=== PATIENT | male | born 1965 | race Caucasian/White ===

== ENCOUNTER 2020-06-04 10:38 | Outpatient (REF) | payer OTHER, SELFPAY ==
--- NOTE | 2020-06-04 10:45 | EMG_ITS ---
Right median and ulnar motor and sensory studies were performed. Right radial sensory study was performed and paraspinal muscles were tested with a needle. IMPRESSION: 1. Mild right median neuropathy across carpal tunnel. 2. Mild right ulnar neuropathy across elbow. MD CAYLA Infante/SILAS / [phone]
[2020-06-04 11:26] LABS: Hematocrit 45.6 % (42-52); Hemoglobin 15.5 g/dl (14.0-18.0); Mean Corpuscular Hemoglobin 28.1 pg (27.0-33.0); Mean Corpuscular Volume 82.6 fL (80-98); Mean Platelet Volume 9.4 fL (9.4-12.4); Platelet Count 353 X10*3/uL (160-400); Red Blood Count 5.52 X10*6/uL (4.60-5.80); Red Cell Distribution Width 13.8 % (11.0-16.0); White Blood Count 10.7 X10*3/uL (4.8-10.8)
[2020-06-04 11:50] LABS: Estimated Average Glucose 117 mg/dL; Hemoglobin A1c % 5.7 %
[2020-06-04 11:51] LABS: Creatinine Urine 29.54 mg/dL; Microalbum/Creatinine Ratio Ur 412.9 ug/mg cr
[2020-06-04 12:08] LABS: Prostate Specific Antigen Scr 1.28 ng/mL (<0.05-4.0); TSH reflex Free T4 2.34 uIU/mL (0.32-4.0)
[2020-06-04 12:11] LABS: Alanine Aminotransferase 39 U/L (0-40); Albumin Level 4.6 g/dL (3.5-5.0); Alkaline Phosphatase 103 U/L (39-117); Anion Gap 15 (12-20); Aspartate Amino Transferase 19 U/L (5-37); Bilirubin Total 0.5 mg/dL (0.0-1.0); Blood Urea Nitrogen 12 mg/dL (9-16); Calcium 9.2 mg/dL (8.4-10.2); Carbon Dioxide 31 mmol/L (22-29); Chloride 100 mmol/L (96-108); Cholesterol 163 mg/dL; Estimated Glomerular Filt Rate > 60; Glucose Fasting 100 mg/dL (60-99); HDL Cholesterol 47 mg/dL; LDL Cholesterol Calculated 96 mg/dl; Potassium 4.1 mmol/L (3.3-5.1); Sodium 142 mmol/L (135-145); Total Protein 7.8 g/dL (6.5-8.0); Triglycerides 103 mg/dL
[2020-06-04 12:23] LABS: Folate 18.9 ng/mL (> or = 4.0); Vitamin B12 277 pg/mL (200-900)
== END 2020-06-04 10:39 | disposition home or self-care (01) ==
LOC: HO.NEURO 10:38
PROVIDERS: PCP Physician Assistant; Visit Provider Physician Assistant
DX: Z12.5 Encounter for screening for malignant neoplasm of prostate (principal); R20.2 Paresthesia of skin; I10 Essential (primary) hypertension; I48.11 Longstanding persistent atrial fibrillation
CPT/HCPCS: 36415; 80053; 80061; 82043; 82607; 82746; 83036; 84153; 84443; 85027; 95860; 95909

== ENCOUNTER 2021-02-15 11:19 | Outpatient (REF) | payer MEDICARE, MEDICAID, SELFPAY ==
[2021-02-15 11:54] LABS: Hemoglobin 15.5 g/dl (14.0-18.0); Mean Corpuscular HGB Conc 33.7 g/dl (31.0-36.0); Mean Corpuscular Hemoglobin 27.3 pg (27.0-33.0); Platelet Count 370 X10*3/uL (160-400); Red Blood Count 5.68 X10*6/uL (4.60-5.80); Red Cell Distribution Width 14.1 % (11.0-16.0); White Blood Count 13.3 X10*3/uL (4.8-10.8)
[2021-02-15 12:04] LABS: Estimated Average Glucose 131 mg/dL; Hemoglobin A1c % 6.2 %
[2021-02-15 12:34] LABS: TSH reflex Free T4 1.51 uIU/mL (0.32-4.0)
[2021-02-15 12:38] LABS: Alanine Aminotransferase 29 U/L (0-40); Albumin Level 4.5 g/dL (3.5-5.0); Alkaline Phosphatase 99 U/L (39-117); Anion Gap 14 (12-20); Aspartate Amino Transferase 20 U/L (5-37); Bilirubin Total 0.6 mg/dL (0.0-1.0); Blood Urea Nitrogen 11 mg/dL (9-16); Calcium 9.8 mg/dL (8.4-10.2); Carbon Dioxide 30 mmol/L (22-29); Chloride 103 mmol/L (96-108); Cholesterol 163 mg/dL; Estimated Glomerular Filt Rate > 60; Glucose Fasting 113 mg/dL (60-99); HDL Cholesterol 38 mg/dL; Potassium 4.2 mmol/L (3.3-5.1); Sodium 143 mmol/L (135-145); Total Protein 7.9 g/dL (6.5-8.0)
[2021-02-15 13:20] LABS: Creatinine Urine 69.75 mg/dL; Microalbum/Creatinine Ratio Ur 160.5 ug/mg cr
[2021-02-15 15:06] LABS: LDL Cholesterol Calculated 101 mg/dl; Triglycerides 121 mg/dL
== END 2021-02-15 11:20 | disposition home or self-care (01) ==
LOC: HO.LAB 11:19
PROVIDERS: PCP Physician Assistant; Visit Provider Physician Assistant
DX: I48.11 Longstanding persistent atrial fibrillation (principal); I10 Essential (primary) hypertension
CPT/HCPCS: 36415; 80053; 80061; 82043; 83036; 84443; 85027

== ENCOUNTER 2022-07-12 11:30 | Outpatient (REF) | payer MEDICARE, MEDICAID, SELFPAY ==
[2022-07-12 12:19] LABS: Hematocrit 44.5 % (42.0-52.0); Hemoglobin 14.7 g/dl (14.0-18.0); Mean Corpuscular Hemoglobin 26.8 pg (27.0-33.0); Mean Corpuscular Volume 81.1 fL (80.0-98.0); Mean Platelet Volume 8.9 fL (9.4-12.4); Platelet Count 293 X10*3/uL (160-400); Red Blood Count 5.49 X10*6/uL (4.60-5.80); Red Cell Distribution Width 14.5 % (11.0-16.0); White Blood Count 9.4 X10*3/uL (4.8-10.8)
[2022-07-12 13:00] LABS: Alanine Aminotransferase 25 U/L (0-40); Albumin Level 4.1 g/dL (3.5-5.0); Alkaline Phosphatase 99 U/L (39-117); Anion Gap 13 (12-20); Aspartate Amino Transferase 13 U/L (5-37); Bilirubin Total 0.8 mg/dL (0.0-1.0); Blood Urea Nitrogen 15 mg/dL (9-16); Calcium 9.7 mg/dL (8.4-10.2); Carbon Dioxide 32 mmol/L (22-29); Chloride 102 mmol/L (96-108); Cholesterol 143 mg/dL; Estimated Glomerular Filt Rate > 60; Glucose Fasting 120 mg/dL (60-99); HDL Cholesterol 41 mg/dL; LDL Cholesterol Calculated 89 mg/dl; Potassium 4.5 mmol/L (3.3-5.1); Sodium 142 mmol/L (135-145); TSH reflex Free T4 1.38 uIU/mL (0.32-4.0); Total Protein 6.7 g/dL (6.5-8.0); Triglycerides 68 mg/dL
[2022-07-12 13:41] LABS: Creatinine Urine 111.14 mg/dL; Microalbum/Creatinine Ratio Ur 253.7 ug/mg cr
== END 2022-07-12 11:31 | disposition home or self-care (01) ==
LOC: HO.LAB 11:30
PROVIDERS: PCP Physician Assistant; Visit Provider Physician Assistant
DX: I10 Essential (primary) hypertension (principal); I48.11 Longstanding persistent atrial fibrillation; Z12.5 Encounter for screening for malignant neoplasm of prostate
CPT/HCPCS: 36415; 80053; 80061; 82043; 84153; 84443; 85027

== ENCOUNTER 2022-11-15 13:55 | Outpatient (AMB) | payer MEDICARE, MEDICAID, SELFPAY ==
--- NOTE | 2022-11-15 13:58 | A.OFFPC_ITS ---
Vital Signs 11/15/22 14:00 Height 5 ft 6 in Weight 236 lb 2 oz BMI 38.1 BP 112/68 Blood Pressure Location Lt brachial Position Sitting Pulse 88 Pulse Source Pulse Oximeter Pulse Oximetry (%) 98 Oxygen Delivery Method Room Air Intake Visit Reasons: 4 month f/u Intake Note: Patient is here to follow up on COPD, HTN, Asthma and Afib. Preparation Supervisor Canning Required: No Residential Mortgage Manager: Not Required per policy Accompanied by: Self / Same As Patient Allergies No Known Allergies Allergy (Verified 11/15/22 14:30) Medication List - Last Reconciled 11/15/22 by Niels Gonzalez PA-C albuterol sulfate 90 mcg/actuation (ProAir HFA) 2 puffs PO QID 30 days albuterol sulfate 90 mcg/actuation (ProAir RespiClick) 2 inhalations PO Q6H PRN 30 days amlodipine 10 mg PO DAILY 90 days apixaban 5 mg PO BID 90 days fluticasone propion-salmeterol 232-14 mcg/actuation 1 inh inhalation BID 30 days fluticasone propionate 220 mcg/actuation (Flovent HFA) 1 puff inhalation Q12H 30 days furosemide 40 mg PO DAILY losartan 100 mg (2 x 50 mg) PO DAILY 90 days metoprolol succinate ER 100 mg PO DAILY 90 days pantoprazole 20 mg PO DAILY tiotropium bromide (Spiriva with HandiHaler) 1 cap inhalation DAILY 90 days Tobacco use date assessed: 11/15/22 Dental Screening Dental Screen Date: 11/15/22 Did you have a dental visit in the last 12 months?: No Did you have a dental problem in the last 6 months where you did not have access to dental care?: No Was dental information given to patient?: No HPI 4 month f/u HPI Details Patient is a 57 year old male here today for follow-up visit.. Patient has a past medical history significant for HTN, COPD, AFIB, GERD. Concern--> recently had a gout flare and was given prednisone which has helped. He reports his gout flares attacks ankles and feet. He reports this happens to him on a monthly basis. PLAN: He is willing to start daily medication to reduce uric acid levels HTN:? Patient's blood pressure at home and here in the office has been stable.? Denies any headaches, vision issues, chest discomfort or palpitations. ? .. ? AFIB: On Eliquis 5 mg b.i.d. denies any overt signs of bleeding. Continues to follow cardiology and was field. He reports recently getting cardiac testing which showed satisfactory results. ?Currently patient without chest pain or palpitations. .. Obesity:? ? He does understand his BMI is well over 30 and is willing to add after better eating habits and try to be more physically active to reduce his weight. ? .. ? COPD: Is followed by a hospital manager Dr. Rocha in [facility] Continues with the use of maintenance inhalers which are helpful to him. ?.? Laboratory Tests 07/12/22 07/12/22 11:58 11:58 RBC 5.49 Creatinine 0.70 Fasting Glucose 120 H Cholesterol 143 PSA Screen 2.10 TSH 1.38 ? PFSH Surgical History No pertinent past surgical history Family History Father Diabetes Mother Hypertension Brother No problems noted. Sister No problems noted. Social History Housing: House Alcohol intake: current Alcohol intake frequency: a few times a week Patient Tobacco Use Status: Former Tobacco user Tobacco use type: Cigarette e-Cigarette/Vaping Use: Never Used Second Hand Smoke Exposure: No service: No Current occupational status: disabled Cognitive needs: No Hearing needs: No Vision needs: No Questionnaire Thrive Questionnaire Date Thrive assessed: 07/12/22 RICARDO-7 AMB Questionnaire RICARDO-7 Date RICARDO - 7 assessed: 07/12/22 Source: Developed by Drs. Cory Dos Santos, Cami Lehman, Guilherme Emanuel and colleagues, with an educational mariza from [employer]. Review of Systems Const Denies headache(s) Eyes Denies loss of vision ENT Denies vertigo, Denies dizziness, Denies headache(s) and Denies sore throat Card Denies chest pain, Denies leg edema and Denies lightheadedness Resp Denies cough, Denies hemoptysis and Denies wheezing GI Denies abdominal pain, Denies melena, Denies constipation, Denies diarrhea and Denies vomiting Denies dysuria, Denies urinary frequency and Denies urinary urgency Musc Denies arthralgias, Denies joint swelling, Denies numbness and Denies tingling Neuro Denies Abnormal speech present, Denies behavioral changes, Denies vertigo, Denies dizziness, Denies headache(s), Denies loss of vision, Denies memory loss, Denies numbness and Denies tingling Psych Denies anxiety, Denies behavioral changes, Denies depression, Denies memory loss and Denies panic attacks Sandor/Lymph Denies easy bleeding and Denies easy bruising Aller/Immun Denies wheezing Physical exam (Primary Care) Vital Signs: Last Vital Signs Pulse 88 11/15/22 14:00 BP 112/68 11/15/22 14:00 Pulse Ox 98 11/15/22 14:00 Oxygen Delivery Method Room Air 11/15/22 14:00 BMI result Body Mass Index 38.1 BMI Assessment/Plan discussion: High Tobacco/Smoking Status: Tobacco use Status Tobacco use date assessed 11/15/22 11/15/22 14:17 Patient Tobacco Use Status Former Tobacco user 11/15/22 13:58 Tobacco use type Cigarette 11/15/22 13:58 e-Cigarette/Vaping Use Never Used 11/15/22 13:58 Thrive Assessment: Date of Thrive Assessment Date Thrive assessed 07/12/22 11/15/22 13:58 Const Other: Obese General: no acute distress, alert and awake Nutritional Appearance: well nourished Orientation/consciousness: oriented to person, oriented to place and oriented to time HENWV Ears: TM's normal bilaterally General nose exam: Normal nasal mucous membranes and turbinates present Eyes Conjunctivae: conjunctivae normal Sclerae: sclerae normal Pupils: Equal, round and reactive pupils present Neck Neck: Yes no lymphadenopathy and Yes no JVD Thyroid: Thyroid normal Carotids: no bruits Resp Effort & Inspection: normal respiratory effort and not tachypneic Auscultation: no crackles, no rales, no rhonchi and no wheezes Cardio Rate: regular rate Rhythm: regular rhythm Heart sounds: no murmurs and normal S1 and S2 GI Palpation (GI): Soft to palpation, nontender, no hepatomegaly and no splenomegaly Auscultation: normal bowel sounds Skin General skin exam: no rashes or lesions noted and dry skin Neuro General: oriented to person, oriented to place and oriented to time Cranial nerves: Yes Equal, round and reactive pupils present Speech: No Abnormal speech present Gait exam (Neuro): Normal gait present Motor exam (neuro): no tremor noted Extrem Right upper extremity: full ROM Left upper extremity: full ROM Right lower extremity: full ROM; no edema Left lower extremity: full ROM; no edema Psych Mental Status: mental status grossly normal Speech and movement: Normal speech and movement present Affect: normal affect Attitude: cooperative Thought process: Normal thought process present Assessment and Plan Assessment & Plan (1) HTN (hypertension): Code(s): I10 - Essential (primary) hypertension Qualifiers: Hypertension type: essential hypertension Qualified Code(s): I10 - Essential (primary) hypertension Plan: Patient's blood pressure acceptable today in office. Will continue his current dose of antihypertensive medication with goal blood pressure to be below 140/90 (2) COPD (chronic obstructive pulmonary disease): Code(s): J44.9 - Chronic obstructive pulmonary disease, unspecified Qualifiers: COPD type: chronic bronchitis Chronic bronchitis type: mixed simple and mucopurulent Qualified Code(s): J41.8 - Mixed simple and mucopurulent chronic bronchitis Plan: Patient reports his pulmonary symptoms have been fairly stable with the use of his maintenance inhaler and p.r.n. use of his albuterol inhaler. Is followed by hospital manager and was field [place]. Denies any recent COPD exacerbations. (3) Afib: Code(s): I48.91 - Unspecified atrial fibrillation Qualifiers: Atrial fibrillation type: longstanding persistent Qualified Code(s): I48.11 - Longstanding persistent atrial fibrillation Plan: Again followed by head up operator locally. Does continue with Eliquis without any overt signs of bleeding. He has rate controlledl with metoprolol 100 mg daily. (4) Obese: Code(s): E66.9 - Obesity, unspecified Qualifiers: Body mass index: BMI 38.0-38.9 Obesity classification: adult class 2 (BMI 35 - 39.9) Obesity type: due to excess calories Serious obesity comorbidity presence: with serious comorbidity Qualified Code(s): E66.01 - Morbid (severe) obesity due to excess calories; Z68.38 - Body mass index [BMI] 38.0-38.9, adult Plan: He does understand his BMI is well over 30 will try to work on being more physically active and adapting to better eating habits to reduce his weight (5) Gout: Code(s): M10.9 - Gout, unspecified Qualifiers: Chronicity: chronic Encounter type: initial encounter Gout site: foot Laterality: left Presence of tophus: without tophus Plan: report having frequent gout flares in his ankles and feet as of late. He admits to dietary indiscretion. Has been seen at the ER and given prednisone for a gout flare which had helped. He is willing to start on daily medication to reduce his uric acid levels. (6) Impaired glucose metabolism: Code(s): R73.09 - Other abnormal glucose Plan: Most recent blood work showing elevated fasting blood sugar and A1c is 6.2. Will recheck A1c and fasting blood sugar to assure not in diabetic range. Again advised on weight reduction and low-carbohydrate diet. Orders: Orders Comprehensive Crowell. Panel Fast 11/15/22 I10 - Essential (primary) hypertension Microalbumin, Random (w Creat) 11/15/22 I10 - Essential (primary) hypertension Complete Blood Count no Diff 11/15/22 J41.8 - Mixed simple and mucopurulent chronic bronchitis Hemoglobin A1c 11/15/22 R73.09 - Other abnormal glucose Uric Acid Today M10.9 - Gout, unspecified Medications: New allopurinol 100 mg PO DAILY 90 tabs 1RF 90 days M10.9 - Gout, unspecified prednisone 10 mg PO DAILY PRN 7 tabs 0RF gout attack 7 days M10.9 - Gout, unspecified Changed From albuterol sulfate 90 mcg/actuation (ProAir HFA) 2 puffs PO QID 30 days 8.5 grams 3RF wheezing J41.8 - Mixed simple and mucopurulent chronic bronchitis To albuterol sulfate 90 mcg/actuation 2 puffs PO QID 8.5 grams 3RF wheezing 30 days J41.8 - Mixed simple and mucopurulent chronic bronchitis Refilled apixaban 5 mg PO BID 180 tabs 2RF 90 days I48.11 - Longstanding persistent atrial fibrillation tiotropium bromide (Spiriva with HandiHaler) 1 cap inhalation DAILY 90 caps 2RF 90 days J41.8 - Mixed simple and mucopurulent chronic bronchitis furosemide 40 mg PO DAILY 90 tabs 0RF J45.909 - Unspecified asthma, uncomplicated fluticasone propionate 220 mcg/actuation (Flovent HFA) 1 puff inhalation Q12H 12 grams 3RF 30 days J45.909 - Unspecified asthma, uncomplicated fluticasone propion-salmeterol 232-14 mcg/actuation 1 inh inhalation BID 1 ea 3RF 30 days J41.8 - Mixed simple and mucopurulent chronic bronchitis Coding Level of Care Code Est Pt Level 4 (45168) Diagnoses HTN (hypertension) I10 Hypertension type: essential hypertension COPD (chronic obstructive pulmonary disease) J41.8 COPD type: chronic bronchitis Chronic bronchitis type: mixed simple and mucopurulent Afib I48.11 Atrial fibrillation type: longstanding persistent Obese E66.01; Z68.38 Body mass index: BMI 38.0-38.9 Obesity classification: adult class 2 (BMI 35 - 39.9) Obesity type: due to excess calories Serious obesity comorbidity presence: with serious comorbidity Gout M10.9 Chronicity: chronic Encounter type: initial encounter Gout site: foot Laterality: left Presence of tophus: without tophus Impaired glucose metabolism R73.09
[2022-11-15 14:00] VITALS: BP 112/68; PULSE 88; O2SAT 98; BMI 38.1
== END 2022-11-15 14:48 | disposition home or self-care (01) ==
PROVIDERS: PCP Physician Assistant; Visit Provider Physician Assistant
DX: I10 Essential (primary) hypertension (principal); J41.8 Mixed simple and mucopurulent chronic bronchitis; E66.01 Morbid (severe) obesity due to excess calories; Z68.38 Body mass index [BMI] 38.0-38.9, adult; I48.11 Longstanding persistent atrial fibrillation; M10.9 Gout, unspecified; R73.09 Other abnormal glucose
CPT/HCPCS: 99214

== ENCOUNTER 2023-03-21 13:37 | Outpatient (AMB) | payer OTHER, MEDICAID, SELFPAY ==
--- NOTE | 2023-03-21 13:32 | A.OFFPC_ITS ---
Intake Visit Reasons: f/u COPd/ HTN/ AFIB/[phone] [employer]er Required: No Accompanied by: Self / Same As Patient Allergies No Known Allergies Allergy (Verified 03/21/23 13:39) Medication List - Last Reconciled 03/21/23 by Niels Gonzalez PA-C albuterol sulfate 90 mcg/actuation 2 puffs PO QID 30 days allopurinol 100 mg PO DAILY 90 days amlodipine 10 mg PO DAILY 90 days apixaban 5 mg PO BID 90 days fluticasone propion-salmeterol 232-14 mcg/actuation 1 inh inhalation BID 30 days fluticasone propionate 220 mcg/actuation (Flovent HFA) 1 puff inhalation Q12H 30 days discwofvsgn-duvegcvdw-bakzuqys 100-62.5-25 mcg (Trelegy Ellipta) 1 ea inhalation DAILY furosemide 40 mg PO DAILY losartan 100 mg (2 x 50 mg) PO DAILY 90 days metoprolol succinate ER 100 mg PO DAILY 90 days pantoprazole 20 mg PO DAILY tiotropium bromide (Spiriva with HandiHaler) 1 cap inhalation DAILY 90 days Tobacco use date assessed: 03/21/23 Dental Screening Dental Screen Date: 03/21/23 Did you have a dental visit in the last 12 months?: No Did you have a dental problem in the last 6 months where you did not have access to dental care?: No Was dental information given to patient?: Patient has dentist HPI f/u COPd/ HTN/ AFIB/[phone] HPI Details Patient is a 57 year old male being evaluated today via telephone for follow-up visit.. Patient has a past medical history significant for HTN, COPD, AFIB, GERD. unfortunately has not gotten labs done before todays visit. Concern-- HTN:? Patient's blood pressure at home have been stable 110s to 120 systolic.? Denies any headaches, vision issues, chest discomfort or palpitations. ? .. ? AFIB: On Eliquis 5 mg b.i.d. denies any overt signs of bleeding. Continues to [place]. He reports recently getting cardiac testing and ECHO which showed satisfactory results. ?Currently patient without chest pain or palpitations. .. ? .. ? COPD: Is followed by a rural service engineer Dr. Villalta in [facility].? Continues with the use of maintenance inhalers (trelegy) which are helpful to him. He does report at times of physical exertion you does get short of breath and does have to uses rescue inhaler which resolves his shortness of breath. ?.? PFSH Surgical History No pertinent past surgical history Family History Father Diabetes Mother Hypertension Brother No problems noted. Sister No problems noted. Social History Housing: House Alcohol intake: current Alcohol intake frequency: a few times a week Patient Tobacco Use Status: Former Tobacco user Tobacco use type: Cigarette e-Cigarette/Vaping Use: Never Used Second Hand Smoke Exposure: No service: No Current occupational status: disabled Cognitive needs: No Hearing needs: No Vision needs: No Questionnaire PHQ-9 Over the last 2 weeks, how often have you been bothered by any of the following problems? 1. Little interest or pleasure in doing things: not at all 2. Feeling down, depressed, or hopeless: not at all 3. Trouble falling or staying asleep, or sleeping too much: not at all 4. Feeling tired or having little energy: not at all 5. Poor appetite or overeating: not at all 6. Feeling bad about yourself - or that you are a failure or have let yourself or your family down: not at all 7. Trouble concentrating on things, such as reading the newspaper or watching television: not at all 8. Moving or speaking so slowly that other people could have noticed. Or the opposite - being so fidgety or restless that you have been moving around a lot more than usual: not at all 9. Thoughts that you would be better off or of hurting yourself in some way: not at all Total score: 0 Depression Screening Interpretation: Negative Depression Screening Done: Yes 90305 - PHQ-9 Billing: Yes Source: Developed by Drs. Cory Dos Santos, Cami Lehman, Guilherme Emanuel and colleagues, with an educational mariza from [employer]. Thrive Questionnaire Date Thrive assessed: 03/21/23 I am a: Patient What is your living situation today?: I have a steady place to live Within the past 12 months, did the food you bought not last and you didn't have the money to get more?: Never true Within the past 12 months, did you worry whether your food would run out before you got money to buy more?: Never true Do you have trouble paying for medicines?: No Do you have trouble getting transportation to medical appointments?: No Do you have trouble paying your heating and electricity bill?: No Do you have trouble taking care of your child, family member or friend?: No Do you have trouble with day-to-day activities such as bathing, preparing meals, shopping, managing finances, etc.?: No Are you currently unemployed and looking for a job?: No Are you interested in more education?: No Please select the resources that you would like help with: None Currently or been in a relationship where the following occur: no concerns reported AUDIT C Alcohol Use Questionnaire (AUDIT-C) 1. How often do you have a drink containing alcohol?: Monthly or less 2. How many drinks containing alcohol do you have on a typical day when you are drinking?: 1 or 2 3. How often do you have six or more drinks on one occasion?: Never Total Score: 1 RICARDO-7 AMB Questionnaire RICARDO-7 Date RICARDO - 7 assessed: 03/21/23 Feeling nervous, anxious, or on edge: 0 = Not at all Not being able to stop or control worryin = Not at all Worrying too much about different things: 0 = Not at all Trouble relaxin = Not at all Being so restless that it is hard to sit still: 0 = Not at all Becoming easily annoyed or irritable: 0 = Not at all Feeling afraid as if something awful might happen: 0 = Not at all Total RICARDO-7 score (0-4 normal; 5-9 mild; 10-14 moderate; 15-21 severe): 0 Source: Developed by Drs. Cory Dos Santos, Cami Lehman, Guilherme Emanuel and colleagues, with an educational mariza from [employer]. RICARDO-7 Assessment Billing RICARDO-7 Assessment Tool: RICARDO-7 Assessment 53680 Review of Systems Const Denies headache(s) Eyes Denies loss of vision ENT Denies vertigo, Denies dizziness, Denies headache(s) and Denies sore throat Card Denies chest pain, Denies leg edema and Denies lightheadedness Resp Denies cough, Denies hemoptysis and Denies wheezing GI Denies abdominal pain, Denies melena, Denies constipation, Denies diarrhea and Denies vomiting Denies dysuria, Denies urinary frequency and Denies urinary urgency Musc Denies arthralgias, Denies joint swelling, Denies numbness and Denies tingling Neuro Denies behavioral changes, Denies vertigo, Denies dizziness, Denies headache(s), Denies loss of vision, Denies memory loss, Denies numbness and Denies tingling Psych Denies anxiety, Denies behavioral changes, Denies depression, Denies memory loss and Denies panic attacks Sandor/Lymph Denies easy bleeding and Denies easy bruising Aller/Immun Denies wheezing Physical exam (Primary Care) Tobacco/Smoking Status: Tobacco use Status Tobacco use date assessed 03/21/23 03/21/23 13:36 Patient Tobacco Use Status Former Tobacco user 03/21/23 13:32 Tobacco use type Cigarette 03/21/23 13:32 e-Cigarette/Vaping Use Never Used 03/21/23 13:32 PHQ-9: PHQ-9 Score PHQ-9: Total score 0 03/21/23 13:36 Depression Screening Interpretation: Negative Thrive Assessment: Date of Thrive Assessment Date Thrive assessed 03/21/23 03/21/23 13:36 Currently or been in a relationship where the following occur: no concerns reported Telehealth Telehealth Location of provider rendering services: practice address Location of patient: address on file Patient Identification confirmed using: Name, : Yes Telehealth method: voice only Patient verbally consented to treatment: Yes Patient verbally consented to billing insurance company: Yes Patient informed of any privacy concerns related to visit: Yes Minutes spent on Phone/Video with Pt.: 11 Assessment and Plan Assessment & Plan (1) COPD (chronic obstructive pulmonary disease): Code(s): J44.9 - Chronic obstructive pulmonary disease, unspecified Qualifiers: COPD type: chronic bronchitis Chronic bronchitis type: mixed simple and mucopurulent Qualified Code(s): J41.8 - Mixed simple and mucopurulent chronic bronchitis Plan: Patient reports his pulmonary symptoms have been fairly stable with the use of his maintenance inhaler and p.r.n. use of his albuterol inhaler. Is followed by rural service engineer and [facility] ( dr. villalta). Denies any recent COPD exacerbations. (2) GERD (gastroesophageal reflux disease): Code(s): K21.9 - Gastro-esophageal reflux disease without esophagitis Qualifiers: Esophagitis presence: without esophagitis Qualified Code(s): K21.9 - Gastro-esophageal reflux disease without esophagitis Plan: His GERD symptoms have been well controlled with use of pantoprazole. He does report some dietary indiscretion that causes some GERD symptoms. Advised on dietary modifications (3) HTN (hypertension): Code(s): I10 - Essential (primary) hypertension Qualifiers: Hypertension type: essential hypertension Qualified Code(s): I10 - Essential (primary) hypertension Plan: Patient reports that home his blood pressure been stable.. Will continue his current dose of antihypertensive medication with goal blood pressure to be below 140/90 (4) Afib: Code(s): I48.91 - Unspecified atrial fibrillation Qualifiers: Atrial fibrillation type: longstanding persistent Qualified Code(s): I48.11 - Longstanding persistent atrial fibrillation Plan: Again followed by inventory associate and driver locally. Does continue with Eliquis without any overt signs of bleeding. He has rate controlled with metoprolol 100 mg daily. (5) Gout: Code(s): M10.9 - Gout, unspecified Qualifiers: Gout site: foot Encounter type: initial encounter Chronicity: chronic Laterality: left Presence of tophus: without tophus Plan: report having frequent gout flares in his ankles and feet as of late. He admits to dietary indiscretion. Has been seen at the ER and given prednisone for a gout flare which had helped. He is willing to start on daily medication to reduce his uric acid levels. (6) Impaired glucose metabolism: Code(s): R73.09 - Other abnormal glucose Plan: Most recent blood work showing elevated fasting blood sugar and A1c is 6.2. Will recheck A1c and fasting blood sugar to assure not in diabetic range. Again advised on weight reduction and low-carbohydrate diet. Orders: Orders Prostate Specific Antigen Scr Today Z12.5 - Encounter for screening for malignant neoplasm of prostate Medications: Changed From pantoprazole 20 mg PO DAILY 90 tabs 1RF K21.9 - Gastro-esophageal reflux disease without esophagitis To pantoprazole 20 mg PO DAILY 90 days 90 tabs 2RF K21.9 - Gastro-esophageal reflux disease without esophagitis From furosemide 40 mg PO DAILY 90 tabs 0RF I10 - Essential (primary) hypert ension To furosemide 40 mg PO DAILY 90 days 90 tabs 2RF I10 - Essential (primary) hypertension Refilled albuterol sulfate 90 mcg/actuation 2 puffs PO QID 30 days 8.5 grams 3RF wheezing J41.8 - Mixed simple and mucopurulent chronic bronchitis amlodipine 10 mg PO DAILY 90 days 90 tabs 2RF I10 - Essential (primary) hypertension apixaban 5 mg PO BID 90 days 180 tabs 2RF I48.11 - Longstanding persistent atrial fibrillation fluticasone propionate 220 mcg/actuation (Flovent HFA) 1 puff inhalation Q12H 30 days 12 grams 3RF J45.909 - Unspecified asthma, uncomplicated tiotropium bromide (Spiriva with HandiHaler) 1 cap inhalation DAILY 90 days 90 caps 2RF J41.8 - Mixed simple and mucopurulent chronic bronchitis metoprolol succinate ER 100 mg PO DAILY 90 days 90 tabs 2RF I48.11 - Longstanding persistent atrial fibrillation losartan 100 mg (2 x 50 mg) PO DAILY 90 days 180 tabs 2RF I10 - Essential (primary) hypertension allopurinol 100 mg PO DAILY 90 days 90 tabs 2RF M10.9 - Gout, unspecified Coding Level of Care Code Tele Est Pt Level 4 (49058) Diagnoses Mixed simple and mucopurulent chronic bronchitis J41.8 COPD type: chronic bronchitis Chronic bronchitis type: mixed simple and mucopurulent Gastroesophageal reflux disease without esophagitis K21.9 Esophagitis presence: without esophagitis Essential hypertension I10 Hypertension type: essential hypertension Longstanding persistent atrial fibrillation I48.11 Atrial fibrillation type: longstanding persistent Gout M10.9 Gout site: foot Encounter type: initial encounter Chronicity: chronic Laterality: left Presence of tophus: without tophus Impaired glucose metabolism R73.09 Additional Codes RICARDO-7 Assessment Billing - RICARDO-7 Assessment Tool: RICARDO-7 Assessment 33546 ([id number])
== END 2023-03-21 13:57 | disposition home or self-care (01) ==
LOC: HO.HMGH 13:37
PROVIDERS: PCP Physician Assistant; Visit Provider Physician Assistant
DX: J41.8 Mixed simple and mucopurulent chronic bronchitis (principal); K21.9 Gastro-esophageal reflux disease without esophagitis; I10 Essential (primary) hypertension; I48.11 Longstanding persistent atrial fibrillation; M10.9 Gout, unspecified; R73.09 Other abnormal glucose
CPT/HCPCS: 99442

== ENCOUNTER 2023-07-25 14:13 | Outpatient (AMB) | payer OTHER, MEDICAID, SELFPAY ==
--- NOTE | 2023-07-25 14:22 | A.OFFPC_ITS ---
Vital Signs 07/25/23 14:24 07/25/23 14:34 07/25/23 14:46 Height 5 ft 6 in Weight 241 lb 4 oz BMI 38.9 BP 132/90 H 150/90 H Blood Pressure Location Lt brachial Position Sitting Pulse 85 Pulse Source Pulse Oximeter Pulse Oximetry (%) 89 L 92 Oxygen Delivery Method Room Air Room Air Intake Visit Reasons: 4mth follow up/COPD Intake Note: Patient is here to follow up on COPD, IGF, HTN. Patient Assistant Required: No Probate Clerk: Not Required per policy Accompanied by: Self / Same As Patient Allergies No Known Allergies Allergy (Verified 07/25/23 14:36) Medication List - Last Reconciled 07/25/23 by Niels Gonzalez PA-C albuterol sulfate 90 mcg/actuation 2 puffs PO QID 30 days allopurinol 100 mg PO DAILY 90 days amlodipine 10 mg PO DAILY 90 days apixaban 5 mg PO BID 90 days nrsodufovia-dixkvzofg-jmxateym 100-62.5-25 mcg (Trelegy Ellipta) 1 ea inhalation DAILY furosemide 40 mg PO DAILY 90 days losartan 100 mg (2 x 50 mg) PO DAILY 90 days metoprolol succinate ER 100 mg PO DAILY 90 days pantoprazole 20 mg PO DAILY 90 days Tobacco use date assessed: 07/25/23 Dental Screening Dental Screen Date: 03/21/23 HPI 4mth follow up/COPD HPI Details Patient is a 57 year old male here today for follow-up visit.. Patient has a past medical history significant for HTN, COPD, AFIB, GERD. unfortunately has not gotten labs done before todays visit. Concern-- > continues to have shortness of breath on minimal exertion. Has been using his maintenance inhaler regularly. He has followed up with [employer] [employer] and will be getting a battery of tests including chest x-ray, PFT and 6 minute walk test. He does report seeing his sifter and miller last year and did do cardiac stress test and reports no evidence of ischemic heart disease. HTN:? Patient's blood pressure at home have been stable 110s to 120 systolic. Blood pressure today in office slightly elevated. He does report may have a element of white coat hypertension.? Denies any headaches, vision issues, chest discomfort or palpitations. ? .. ? AFIB: On Eliquis 5 mg b.i.d. denies any overt signs of bleeding. Continues to follow cardiology and [facility]. He reports recently getting cardiac testing and ECHO which showed satisfactory results. ?Currently patient without chest pain or palpitations. .. ? .. ? COPD: Is followed by a [facility] Dr. Villalta in [facility].? Continues with the use of maintenance inhalers (trelegy) which are helpful to him. He does report at times of physical exertion you does get short of breath and does have to uses rescue inhaler which resolves his shortness of breath He will be going for a PFT and chest xray in near future [facility] Surgical History No pertinent past surgical history Family History Father Diabetes Mother Hypertension Brother No problems noted. Sister No problems noted. Social History Housing: House Alcohol intake: current Alcohol intake frequency: a few times a week Patient Tobacco Use Status: Former Tobacco user Tobacco use type: Cigarette e-Cigarette/Vaping Use: Never Used Second Hand Smoke Exposure: No service: No Current occupational status: disabled Cognitive needs: No Hearing needs: No Vision needs: No Questionnaire Thrive Questionnaire Date Thrive assessed: 03/21/23 RICARDO-7 AMB Questionnaire RICARDO-7 Date RICARDO - 7 assessed: 03/21/23 Source: Developed by Drs. Cory Dos Santos, Cami Lehman, Guilherme Emanuel and colleagues, with an educational mariza from [employer]. Review of Systems Const Denies headache(s) Eyes Denies loss of vision ENT Denies vertigo, Denies dizziness, Denies headache(s) and Denies sore throat Card Denies chest pain, Denies leg edema, Denies lightheadedness, Reports dyspnea and Reports dyspnea on exertion Resp Denies cough, Denies hemoptysis, Reports dyspnea, Reports dyspnea on exertion and Denies wheezing GI Denies abdominal pain, Denies melena, Denies constipation, Denies diarrhea and Denies vomiting Denies dysuria, Denies urinary frequency and Denies urinary urgency Musc Denies arthralgias, Denies joint swelling, Denies numbness and Denies tingling Neuro Denies Abnormal speech present, Denies behavioral changes, Denies vertigo, Denies dizziness, Denies headache(s), Denies loss of vision, Denies memory loss, Denies numbness and Denies tingling Psych Denies anxiety, Denies behavioral changes, Denies depression, Denies memory loss and Denies panic attacks Sandor/Lymph Denies easy bleeding and Denies easy bruising Aller/Immun Denies wheezing Physical exam (Primary Care) Vital Signs: Last Vital Signs Pulse 85 07/25/23 14:24 BP 132/90 H 07/25/23 14:24 Pulse Ox 92 07/25/23 14:34 Oxygen Delivery Method Room Air 07/25/23 14:34 BMI result Body Mass Index 38.9 Tobacco/Smoking Status: Tobacco use Status Tobacco use date assessed 07/25/23 07/25/23 14:34 Patient Tobacco Use Status Former Tobacco user 07/25/23 14:34 Tobacco use type Cigarette 07/25/23 14:34 e-Cigarette/Vaping Use Never Used 07/25/23 14:34 Thrive Assessment: Date of Thrive Assessment Date Thrive assessed 03/21/23 07/25/23 14:34 Const General: healthy appearing, no acute distress, alert and awake Nutritional Appearance: well nourished Orientation/consciousness: oriented to person, oriented to place and oriented to time HENMT Ears: TM's normal bilaterally General nose exam: Normal nasal mucous membranes and turbinates present Eyes Conjunctivae: conjunctivae normal Sclerae: sclerae normal Pupils: Equal, round and reactive pupils present Neck Neck: Yes no lymphadenopathy and Yes no JVD Thyroid: Thyroid normal Carotids: no bruits Resp Effort & Inspection: normal respiratory effort and not tachypneic Auscultation: no crackles, no rales, no rhonchi and no wheezes Cardio Rate: regular rate Rhythm: regular rhythm Heart sounds: no murmurs and normal S1 and S2 GI Palpation (GI): Soft to palpation, nontender, no hepatomegaly and no splenomegaly Auscultation: normal bowel sounds Skin General skin exam: no rashes or lesions noted and dry skin Neuro General: oriented to person, oriented to place and oriented to time Cranial nerves: Yes Equal, round and reactive pupils present Speech: No Abnormal speech present Gait exam (Neuro): Normal gait present Motor exam (neuro): no tremor noted Extrem Right upper extremity: full ROM Left upper extremity: full ROM Right lower extremity: full ROM; no edema Left lower extremity: full ROM; no edema Psych Mental Status: mental status grossly normal Speech and movement: Normal speech and movement present Affect: normal affect Attitude: cooperative Thought process: Normal thought process present Results AMB Hemoglobin A1c AMB Hemoglobin A1c 6.1 % Last Edit by MILAGROS Montoya on 07/25/23 14:36 Assessment and Plan Assessment & Plan (1) COPD (chronic obstructive pulmonary disease): Code(s): J44.9 - Chronic obstructive pulmonary disease, unspecified Qualifiers: COPD type: chronic bronchitis Chronic bronchitis type: mixed simple and mucopurulent Qualified Code(s): J41.8 - Mixed simple and mucopurulent chronic bronchitis Plan: Patient reports his pulmonary symptoms have been more evident over the last few months. He reports his breathing decompensate in humid environments.. He reports shortness of breath on minimal exertion often having to take rests. Has followed up with his [employer] and will be getting PFTs, x-ray and 6 minute walk test. Of note has had cardiac evaluation last year reports no coronary artery disease. Does follow a sifter and miller [facility]. Is followed by [facility] and [facility] ( dr. villalta). . (2) GERD (gastroesophageal reflux disease): Code(s): K21.9 - Gastro-esophageal reflux disease without esophagitis Qualifiers: Esophagitis presence: without esophagitis Qualified Code(s): K21.9 - Gastro-esophageal reflux disease without esophagitis Plan: His GERD symptoms have been well controlled with use of pantoprazole. He does report some dietary indiscretion that causes some GERD symptoms. Advised on dietary modifications (3) HTN (hypertension): Code(s): I10 - Essential (primary) hypertension Qualifiers: Hypertension type: essential hypertension Qualified Code(s): I10 - Essential (primary) hypertension Plan: Patient reports that home his blood pressure been stable.. Blood pressure today in office elevated, he does report often having elevated blood pressures at medical visits. Will continue his current dose of antihypertensive medication with goal blood pressure to be below 140/90 (4) Afib: Code(s): I48.91 - Unspecified atrial fibrillation Qualifiers: Atrial fibrillation type: longstanding persistent Qualified Code(s): I 48.11 - Longstanding persistent atrial fibrillation Plan: Again followed by sifter and miller locally in [facility]. Does continue with Eliquis without any overt signs of bleeding. He has rate controlled with metoprolol 100 mg daily. (5) Gout: Code(s): M10.9 - Gout, unspecified Qualifiers: Gout site: foot Encounter type: initial encounter Chronicity: chronic Laterality: left Presence of tophus: without tophus Plan: report having frequent gout flares in his ankles and feet as of late. He admits to dietary indiscretion. Has been seen at the ER and given prednisone for a gout flare which had helped. He is willing to start on daily medication to reduce his uric acid levels. (6) Impaired glucose metabolism: Code(s): R73.09 - Other abnormal glucose Plan: Most recent blood work showing elevated fasting blood sugar and A1c is 6.2. Will recheck A1c and fasting blood sugar to assure not in diabetic range. Again advised on weight reduction and low-carbohydrate diet. (7) Left shoulder tendonitis: Code(s): M77.8 - Other enthesopathies, not elsewhere classified Plan: Reports a several week history of intermittent left shoulder pain located in the anterior region. He does not recall any acute trauma to his left shoulder. Will get x-ray to evaluate for arthritis. Advised on Tylenol use. NSAIDs contraindicated due to anticoagulation treatment. Orders: Orders AMB Hemoglobin A1c Today R73.09 - Other abnormal glucose XR shoulder LT min 2V Today M77.8 - Other enthesopathies, not elsewhere classified Medications: Refilled apixaban 5 mg PO BID 90 days 180 tabs 2RF I48.11 - Longstanding persistent atrial fibrillation pantoprazole 20 mg PO DAILY 90 days 90 tabs 2RF K21.9 - Gastro-esophageal reflux disease without esophagitis metoprolol succinate ER 100 mg PO DAILY 90 days 90 tabs 2RF I48.11 - Longstanding persistent atrial fibrillation albuterol sulfate 90 mcg/actuation 2 puffs PO QID 30 days 8.5 grams 6RF wheezing J41.8 - Mixed simple and mucopurulent chronic bronchitis allopurinol 100 mg PO DAILY 90 days 90 tabs 2RF M10.9 - Gout, unspecified amlodipine 10 mg PO DAILY 90 days 90 tabs 2RF I10 - Essential (primary) hypertension furosemide 40 mg PO DAILY 90 days 90 tabs 2RF I10 - Essential (primary) hypertension losartan 100 mg (2 x 50 mg) PO DAILY 90 days 180 tabs 2RF I10 - Essential (primary) hypertension Patient Instructions: Goal: Blood pressure to be below 140/90 Barriers: Adherence to healthy eating habits and physical activity Coding Level of Care Code Est Pt Level 4 (86414) Diagnoses Mixed simple and mucopurulent chronic bronchitis J41.8 COPD type: chronic bronchitis Chronic bronchitis type: mixed simple and mucopurulent Gastroesophageal reflux disease without esophagitis K21.9 Esophagitis presence: without esophagitis Essential hypertension I10 Hypertension type: essential hypertension Longstanding persistent atrial fibrillation I48.11 Atrial fibrillation type: longstanding persistent Gout M10.9 Gout site: foot Encounter type: initial encounter Chronicity: chronic Laterality: left Presence of tophus: without tophus Impaired glucose metabolism R73.09 Left shoulder tendonitis M77.8
[2023-07-25 14:24] VITALS: BP 132/90; PULSE 85; O2SAT 89; BMI 38.9
[2023-07-25 14:34] VITALS: O2SAT 92
[2023-07-25 14:46] VITALS: BP 150/90
== END 2023-07-25 14:56 | disposition home or self-care (01) ==
PROVIDERS: PCP Physician Assistant; Visit Provider Physician Assistant
DX: J41.8 Mixed simple and mucopurulent chronic bronchitis (principal); K21.9 Gastro-esophageal reflux disease without esophagitis; I10 Essential (primary) hypertension; I48.11 Longstanding persistent atrial fibrillation; M10.9 Gout, unspecified; R73.09 Other abnormal glucose; M77.8 Other enthesopathies, not elsewhere classified
CPT/HCPCS: 83036; 99214

== ENCOUNTER 2024-06-12 11:32 | Outpatient (AMB) | payer OTHER, SELFPAY ==
[2024-06-12 11:43] VITALS: BP 110/78; PULSE 87; TEMP 36.4; O2SAT 95; BMI 38.6
--- NOTE | 2024-06-12 11:43 | MHC.PC.OV ---
Vital Signs 06/12/24 11:43 Height 5 ft 6 in Weight 239 lb 4 oz BMI 38.6 BP 110/78 Blood Pressure Location Lt brachial Position Sitting Pulse 87 Pulse Source Pulse Oximeter Temp 97.5 F Temp Source Temporal Artery Scan Pulse Oximetry (%) 95 Oxygen Delivery Method Nasal Cannula Oxygen Flow Rate 4 Intake Visit Reasons: RescheduleFi/uCOPD/aFBI Skein Yarn Drier Required: No Accompanied by: Self / Same As Patient Allergies No Known Allergies Allergy (Verified 06/12/24 12:18) Medication List - Last Reconciled 06/12/24 by Niels Gonzalez PA-C albuterol sulfate 90 mcg/actuation 2 puffs PO QID 30 days allopurinol 100 mg PO DAILY 90 days amlodipine 10 mg PO DAILY 90 days apixaban 5 mg PO BID 90 days rlritbsmyer-aowvdseyw-xtuffkms 100-62.5-25 mcg (Trelegy Ellipta) 1 ea inhalation DAILY furosemide 40 mg PO DAILY 90 days losartan 100 mg (2 x 50 mg) PO DAILY 90 days metoprolol succinate ER 100 mg PO DAILY 90 days pantoprazole 20 mg PO DAILY 90 days Tobacco use date assessed: 06/12/24 Dental Screening Dental Screen Date: 06/12/24 Did you have a dental visit in the last 12 months?: No Did you have a dental problem in the last 6 months where you did not have access to dental care?: No Was dental information given to patient?: No HPI RescheduleFi/uCOPD/aFBI HPI Details Patient is a 58 year old male here today for follow-up visit.. Patient has a past medical history significant for HTN, COPD, AFIB, GERD. unfortunately has not gotten labs done before todays visit.. HTN:? Patient's blood pressure at home have been stable 110s to 120 systolic. Blood pressure today in office slightly elevated. He does report may have a element of white coat hypertension.? Denies any headaches, vision issues, chest discomfort or palpitations. ? .. ? AFIB: On Eliquis 5 mg b.i.d. denies any overt signs of bleeding. Continues to follow cardiology and [place]. He reports recently getting cardiac testing and ECHO which showed satisfactory results. ?Currently patient without chest pain or palpitations. .. ? .. ? COPD: Is followed by a process control supervisor Dr. Rocha in [facility]. He has been on continuous O2 via nasal cannula and oxygen concentrate at home.? Continues with the use of maintenance inhalers (trelegy) which are helpful to him. He does report at times of physical exertion you does get short of breath and does have to uses rescue inhaler which resolves his shortness of breath [facility] Surgical History No pertinent past surgical history Family History Father Diabetes Mother Hypertension Brother No problems noted. Sister No problems noted. Social History Housing: House Alcohol intake: current Alcohol intake frequency: a few times a week Patient Tobacco Use Status: Former Tobacco user Tobacco use type: Cigarette e-Cigarette/Vaping Use: Never Used Second Hand Smoke Exposure: No service: No Current occupational status: disabled Cognitive needs: No Hearing needs: No Vision needs: No Questionnaire PHQ-9 Over the last 2 weeks, how often have you been bothered by any of the following problems? 1. Little interest or pleasure in doing things: not at all 2. Feeling down, depressed, or hopeless: not at all 3. Trouble falling or staying asleep, or sleeping too much: not at all 4. Feeling tired or having little energy: not at all 5. Poor appetite or overeating: not at all 6. Feeling bad about yourself - or that you are a failure or have let yourself or your family down: not at all 7. Trouble concentrating on things, such as reading the newspaper or watching television: not at all 8. Moving or speaking so slowly that other people could have noticed. Or the opposite - being so fidgety or restless that you have been moving around a lot more than usual: not at all 9. Thoughts that you would be better off or of hurting yourself in some way: not at all Total score: 0 Depression Screening Interpretation: Negative Depression Screening Done: Yes 36152 - PHQ-9 Billing: Yes Source: Developed by Drs. Cory Dos Santos, Guilherme Kan and colleagues, with an educational mariza from [employer]. Thrive Questionnaire Date Thrive assessed: 06/12/24 I am a: Patient What is your living situation today?: I have a steady place to live Within the past 12 months, did the food you bought not last and you didn't have the money to get more?: Never true Within the past 12 months, did you worry whether your food would run out before you got money to buy more?: Never true Do you have trouble paying for medicines?: No Do you have trouble getting transportation to medical appointments?: No Do you have trouble paying your heating and electricity bill?: No Do you have trouble taking care of your child, family member or friend?: No Do you have trouble with day-to-day activities such as bathing, preparing meals, shopping, managing finances, etc.?: No Are you currently unemployed and looking for a job?: No Are you interested in more education?: No Please select the resources that you would like help with: None Currently or been in a relationship where the following occur: No concerns reported THRIVE Score: 0 AUDIT C Alcohol Use Questionnaire (AUDIT-C) 1. How often do you have a drink containing alcohol?: Monthly or less 2. How many drinks containing alcohol do you have on a typical day when you are drinking?: 1 or 2 3. How often do you have six or more drinks on one occasion?: Never Total Score: 1 RICARDO-7 AMB Questionnaire RICARDO-7 Date RICARDO - 7 assessed: 06/12/24 Feeling nervous, anxious, or on edge: 0 = Not at all Not being able to stop or control worryin = Not at all Worrying too much about different things: 0 = Not at all Trouble relaxin = Not at all Being so restless that it is hard to sit still: 0 = Not at all Becoming easily annoyed or irritable: 0 = Not at all Feeling afraid as if something awful might happen: 0 = Not at all Total RICARDO-7 score (0-4 normal; 5-9 mild; 10-14 moderate; 15-21 severe): 0 Source: Developed by Drs. Cory Dos Santos, Guilherme Kan and colleagues, with an educational mariza from [employer]. RICARDO-7 Assessment Billing RICARDO-7 Assessment Tool: RICARDO-7 Assessment 71129 Review of Systems Const Denies headache(s) Eyes Denies loss of vision ENT Denies vertigo, Denies dizziness, Denies headache(s) and Denies sore throat Card Denies chest pain, Denies leg edema and Denies lightheadedness Resp Denies cough, Denies hemoptysis and Denies wheezing GI Denies abdominal pain, Denies melena, Denies constipation, Denies diarrhea and Denies vomiting Denies dysuria, Denies urinary frequency and Denies urinary urgency Musc Denies arthralgias, Denies joint swelling, Denies numbness and Denies tingling Neuro Denies Abnormal speech present, Denies behavioral changes, Denies vertigo, Denies dizziness, Denies headache(s), Denies loss of vision, Denies memory loss, Denies numbness and Denies tingling Psych Denies anxiety, Denies behavioral changes, Denies depression, Denies memory loss and Denies panic attacks Sandor/Lymph Denies easy bleeding and Denies easy bruising Aller/Immun Denies wheezing Physical exam (Primary Care) Vital Signs: Last Vital Signs Temp 97.5 F 06/12/24 11:43 Pulse 87 06/12/24 11:43 BP 110/78 06/12/24 11:43 Pulse Ox 95 06/12/24 11:43 Oxygen Delivery Method Nasal Cannula 06/12/24 11:43 Oxygen Flow Rate 4 06/12/24 11:43 BMI result Body Mass Index 38.6 Tobacco/Smoking Status: Tobacco use Status Tobacco use date assessed 06/12/24 06/12/24 11:52 Patient Tobacco Use Status Former Tobacco user 06/12/24 11:52 Tobacco use type Cigarette 06/12/24 11:52 e-Cigarette/Vaping Use Never Used 06/12/24 11:52 PHQ-9: PHQ-9 Score PHQ-9: Total score 0 06/12/24 12:19 Depression Screening Interpretation: Negative Thrive Assessment: Date of Thrive Assessment Date Thrive assessed 06/12/24 06/12/24 11:52 Currently or been in a relationship where the following occur: No concerns reported Const General: healthy appearing, no acute distress, alert and awake Nutritional Appearance: well nourished Orientation/consciousness: oriented to person, oriented to place and oriented to time HENMT Ears: TM's normal bilaterally General nose exam: Normal nasal mucous membranes and turbinates present Eyes Conjunctivae: conjunctivae normal Sclerae: sclerae normal Pupils: Equal, round and reactive pupils present Neck Neck: Yes no lymphadenopathy and Yes no JVD Thyroid: Thyroid normal Carotids: no bruits Resp Effort & Inspection: normal respiratory effort and not tachypneic Auscultation: no crackles, no rales, no rhonchi and no wheezes Cardio Rate: regular rate Rhythm: regular rhythm Heart sounds: no murmurs and normal S1 and S2 GI Palpation (GI): Soft to palpation, nontender, no hepatomegaly and no splenomegaly Auscultation: normal bowel sounds Skin General skin exam: no rashes or lesions noted and dry skin Neuro General: oriented to person, oriented to place and oriented to time Cranial nerves: Yes Equal, round and reactive pupils present Speech: No Abnormal speech present Gait exam (Neuro): Normal gait present Motor exam (neuro): no tremor noted Extrem Right upper extremity: full ROM Left upper extremity: full ROM Right lower extremity: full ROM; no edema Left lower extremity: full ROM; no edema Psych Mental Status: mental status grossly normal Speech and movement: Normal speech and movement present Affect: normal affect Attitude: cooperative Thought process: Normal thought process present Coding Level of Care Code Est Pt Level 4 (77084) Diagnoses Essential hypertension I10 Hypertension type: essential hypertension Mixed simple and mucopurulent chronic bronchitis J41.8 COPD type: chronic bronchitis Chronic bronchitis type: mixed simple and mucopurulent Longstanding persistent atrial fibrillation I48.11 Atrial fibrillation type: longstanding persistent Class 2 obesity E66.812 Additional Codes RICARDO-7 Assessment Billing - RICARDO-7 Assessment Tool: RICARDO-7 Assessment 90637 ([id number]) PHQ-9 - 76434 - PHQ-9 Billing: Yes ([id number]) Assessment & Plan Assessment & Plan (1) HTN (hypertension): Code(s): I10 - Essential (primary) hypertension Category: Medical Qualifiers: Hypertension type: essential hypertension Qualified Code(s): I10 - Essential (primary) hypertension Plan: Patient's blood pressure acceptable today in office. Will continue his current dose of antihypertensive medication with goal blood pressure to remain below 140/90 (2) COPD (chronic obstructive pulmonary disease): Code(s): J44.9 - Chronic obstructive pulmonary disease, unspecified Category: Medical Qualifiers: COPD type: chronic bronchitis Chronic bronchitis type: mixed simple and mucopurulent Qualified Code(s): J41.8 - Mixed simple and mucopurulent chronic bronchitis Plan: Patient continues to follow pulmonology in [place]. He has been recently started on supplemental O2 at home continuously. You continues with the use of Trelegy for his maintenance inhaler and p.r.n. use of his albuterol inhaler. (3) Afib: Code(s): I48.91 - Unspecified atrial fibrillation Category: Medical Qualifiers: Atrial fibrillation type: longstanding persistent Qualified Code(s): I48.11 - Longstanding persistent atrial fibrillation Plan: Patient is anticoagulated with Eliquis without any overt signs of bleeding. He is rate control with metoprolol with good effect. (4) Class 2 obesity: Code(s): E66.812 - Obesity, class 2 Category: Medical Plan: Patient does understand his BMI is over 35 and will work on being more physically active and adapting to better eating habits to reduce his weight. He is not able to be physically active due to his severe COPD. Orders: Orders Uric Acid 06/12/24 M10.9 - Gout, unspecified Prostate Specific Antigen Scr 06/12/24 I10 - Essential (primary) hypertension, Z12.5 - Encounter for screening for malignant neoplasm of prostate Microalbumin, Random (w Creat) 06/12/24 I10 - Essential (primary) hypertension Hemoglobin A1c 06/12/24 R73.09 - Other abnormal glucose Comprehensive [place]. Panel Fast 06/12/24 R73.09 - Other abnormal glucose Lipid Panel 06/12/24 I10 - Essential (primary) hypertension Referrals Cologuard Test Z12.11 - Encounter for screening for malignant neoplasm of colon Patient Instructions: Goal: Blood pressure to remain below 140/90 Barriers: Adherence to his healthy eating habits and physical activity.-severe COPD
--- OUTSIDE RECORDS SUMMARY | 2024-06-12 14:08 | XMS_ITS | Clinical Summary ---
Demographics Address [address] [place] [address] Home Phone Mobile Phone Preferred Language en Marital Status Unknown Worship Affiliation Unknown Race Unknown Ethnic Group Unknown Author Organization [facility] Facility Address [address] [place] [id number] Care Team Providers Care Licensing Coordinator Name Role Phone Niels Gonzalez Primary Care Provider [phone] Allergies No known active allergies Medications losartan-hydroC HLOROthiazide (HYZAAR) 100-12.5 MG per tablet Take 1 tablet by mouth 1 (one) time each day Active apixaban (Eliquis) 5 MG tablet Take 5 mg by mouth in the morning and 5 mg in the evening. Active amLODIPine (NORVASC) 10 MG tablet Take 10 mg by mouth 1 (one) time each day Active furosemide (LASIX) 40 MG tablet Take 40 mg by mouth in the morning and 40 mg in the evening. Active metoprolol succinate XL (TOPROL-XL) 100 MG 24 hr tablet Take 100 mg by mouth 1 (one) time each day Do not crush or chew. Active pantoprazole (PROTONIX) 20 MG EC tablet Take 20 mg by mouth 1 (one) time each day before breakfast Do not crush, chew, or split. Active tiotropium (SPIRIVA) 18 MCG per inhalation capsule Place 1 capsule into inhaler and inhale 1 (one) time each day Active Active Problems Problem Noted Date Diagnosed Date Proteinuria 09/22/2022 Essential hypertension Overview (09/22/2022): > 3 years Family History Medical History Relation Comments Hypertension Mother Relation Status Comments Father Mother Alive Social History Tobacco Use Types Packs/Day Years Used Date Smoking Tobacco: Never Smokeless Tobacco: Never Tobacco Cessation:Counseling Given: No Alcohol Use Standard Drinks/Week Comments Yes 0 (1 standard drink = 0.6 oz pure alcohol) Alcoholic Drinks/day: Occasional social drink Sex and Gender Information Value Date Recorded Sex Assigned at Not on file Legal Sex Male 4:56 PM EST Gender Identity Not on file Sexual Orientation Not on file Last Filed Vital Signs Vital Sign Reading Time Taken Comments Blood Pressure 140/96 09/22/2022 2:31 PM EDT Pulse 73 09/22/2022 2:31 PM EDT Temperature - - Respiratory Rate - - Oxygen Saturation - - Inhaled Oxygen Concentration - - Weight 107 kg (236 lb) 09/22/2022 2:31 PM EDT Height 167.6 cm (5' 6 ) 05/31/2019 12:00 PM EDT Body Mass Index 38.09 05/31/2019 12:00 PM EDT Plan of Treatment Health Maintenance Due Date Last Done Comments Hepatitis B Vaccine (1 of 3 - 19+ 3-dose series) 1984 Colorectal Cancer Screening: Annual FOBT 2014 Colorectal Cancer Screening: Colonoscopy 2014 Colorectal Cancer Screening: Sigmoidoscopy 2014 Pneumococcal Vaccine: Pediat rics (0 to 5 Years) and At-Risk Patients (6 to 64 Years) (3 of 3 - PPSV23 or PCV20) 01/23/2019 02/28/2017, 01/23/2014 Influenza Vaccine (#1) 2023 01/18/2018, 2016 Insurance * Guarantor: Elaine Spencer Account Type Relation to Patient Date of Phone Billing Address Personal/Family Self 1965 [address] [place] [address] MEDICARE MEDICAID [place] * Guarantor: Elaine Spencer Account Type Relation to Patient Date of Phone Billing Address Personal/Family Self 1965 [address] [place] [address] MEDICARE [place]ICAID [place] Care Teams Licensing Coordinator Relationship Specialty Start Date End Date Niels Gonzalez PA [address] [place] [address], [address] [place] [address] PCP - General Physician Engraved Roller Inspector 08/22/22
--- OUTSIDE RECORDS SUMMARY | 2024-06-12 14:08 | XMS_ITS | Clinical Summary ---
Demographics Address [address] [address] Home Phone Preferred Language Australian Marital Status Single Mandaen Affiliation Unknown Race White Ethnic Group Not or Lati no Author Organization [facility] Address [address] [place] [address] Care Team Providers Care Hse Manager Name Role Phone Frederick Marx NP Primary Care Provider [phone] Source Comments PLEASE NOTE, if this patient is a minor, it may be UNLAWFUL to discuss sensitive information that is contained in these records (such as FAMILY PLANNING, MENTAL HEALTH or SUBSTANCE ABUSE) with the minor patient's parent or other person without the patient's specific authorization.[facility] Allergies No known active allergies Medications carboxymethylcell ulose (REFRESH PLUS) 0.5 % ophthalmic solution Apply 1 Drop to eye 4 Active dextromethorphan- guaifenesin (ROBITUSSIN-DM) 15-100 mg/5 mL syrupIndications: Chronic obstructive pulmonary disease, unspecified COPD type (HCC-CMS) Take 10 mL by mouth every 4 (four) hours as needed for cough 240 mL 1 8 Active budesonide-formot yaneli (SYMBICORT) 160-4.5 mcg/actuation inhaler Inhale 2 Puffs into the lungs 2 (two) times daily 10.2 Inhaler 3 8 Active albuterol sulfate 90 mcg/actuation inhalerIndication s:Chronic obstructive pulmonary disease, unspecified COPD type (HCC-CMS) Inhale 2 Puffs into the lungs every 6 (six) hours as needed for shortness of breath or wheezing 1 Inhaler 5 8 Active fluticasone (FLONASE) 50 mcg/actuation nasal spray Place 1 [place] in both nostrils once daily 16 g 11 8 Active SYMBICORT 160-4.5 mcg/actuation inhaler INHALE 2 PUFFS INTO THE LUNGS 2 (TWO) TIMES DAILY 10.2 Inhaler 3 8 Active omeprazole (PRILOSEC) [address] capsuleIndication s:Gastroesophagea l reflux disease, esophagitis presence not specified Take 1 Cap by mouth once daily Do not crush or chew. 30 Cap 3 8 Active metoprolol tartrate (LOPRESSOR) 50 mg tabletIndications :Chronic atrial fibrillation (HCC-CMS),Essenti al hypertension Take 1 Tab by mouth 2 (two) times daily 60 Tab 3 9 Active losartan (COZAAR) 50 mg tabletIndications :Essential hypertension Take 1 Tab by mouth once daily 30 Tab 5 9 Active amLODIPine (NORVASC) 10 mg tabletIndications :Essential hypertension Take 1 Tab by mouth once daily 30 Tab 5 9 Active apixaban (ELIQUIS) 5 mg tab Take 5 mg by mouth 2 (two) times daily 60 Tab 3 9 Active Active Problems Problem Noted Date Diagnosed Date Left carotid artery stenosis 02/28/2017 Overview (02/28/2017): Patient seen by vascular surgeon, No significant stenosis Right Ca, Left Carotid artery with 50-69% stenosed. Patient to follow in one year Varicose veins of left lower extremity 7 Overview (10/18/2016): Vascular surgery appt 07/15/16- I prescribed compression stockings to be worn at all times during the day and these can be taken off at night with leg elevation. I requested for a venous duplex u/s to evaluate for superficial and deep venous incompetence. We discussed pathophysiology,completely and counseled him on smoking cessation. >> venous duplex ( 09/15/16): Rt incompetent popliteal V, left incompetent femoral and popliteal vein Nasal polyp 02/01/2016 Overview (04/25/2016): Seen by ENT on 01/20/16 - Polypoid mass of Left Nasal Cavity, Nasal Congestion. Ordered CT scan and plan Biopsy based on CT result >>ENT F/U Visit 03/04/16- Polypoid mass in the left nasal cavity. Reduced in size since last visit . Pt will discuss premedical evaluation at the next visit with his imagery intelligence . If Provided w/ clearance and can safety come off the xarelto, I would recommend surgical intervention.Fow now, Cont with nasal steroid spray. F/u in 4-6 wks ENT 04/01/16- F/U Polyp of nasal cavity. Nasal congestion. Epistaxis. Impacted cerumen,rt ear. CT scan show large soft tissue mass extending to the Rt of midline in inferior nasal cavity w/ destruction of lat nasal wall. Bx revealed an inflammatory polyp. Plan surgical polypectomy or debridement. Snoring 09/16/2015 History of TIA (transient ischemic attack) 09/10 Overview (12/15/2016): In 11/2014. Pt had sudden numbness of Left arm resolved sopontaneously. W/u was neg except ECHO showed A fib. His symptoms were presumed TIA and was started on Anticoagulation for Persistent A fib Carotid duplex(12/02/16, [facility]): vascular tortuosity w/o evidence of hemodynamically significant stenosis. Thyroid nodule 09/11/2015 Overview (09/11/2015): 16mm nodule in Lt thyroid gland on CT chest(12/05/14). Thyroid USG recommended Essential hypertension 07/28/2015 GERD (gastroesophageal reflux disease) 6 Chronic atrial fibrillation ([facility]) 07/28/2015 Overview (01/12/2017): Dx in 2014 at [place] after symptoms of TIA. On Xarelto, Metoprolol. Was following Cardiology at [place]- Dr. Corley. Had ECHO, Bubble study at [facility] cardiology. >> Following [facility] cardiology, on 01/15/16, Cont current cardiac regimen of metoprolol, amlodipine, losartan, and Xarelto maintenance therapy. follow up in 6 months with an echocardiogram performed in [facility] prior the visit. 12/13/16 - continue medication - repeat carotid u/s in one year. COPD (chronic obstructive pulmonary disease) ([facility]) 07/28/2015 Overview (09/11/2015): Had PFTs(09/19/13) ? Asthma component+. Alpha 1 AT nl On Spiriva, Albuterol HFA. Former smoker. was seen by Pulmonary- Dr. Festus Josue, He also had Lung mass noted on CT scan. Had endobronchial Bx : no tumor. At [place]/ [facility] Obesity (BMI 30.0-34.9) 07/28/2015 Former smoker 07/28/2015 Speech abnormality 07/28/2015 Overview (07/28/2015): As per pt he has speech abnormality since childhood and had speech therapy in the past. Says that it gets worse when he is anxious. History of alcohol dependence ([facility]) 08/28/19 14 Immunizations Immunization Administration Dates Next Due Flu, Preservative Free 01/18/2018,02/28/2017 INFLUENZA, SEASONAL, INJECTABLE 02/02/2016 PNEUMOCOCCAL CONJUGATE PCV 13 02/28/2017 PNEUMOCOCCAL POLYSACCHARIDE PPV23 01/23/2014 TDAP 11/25/2013 Social History Tobacco Use Types Packs/Day Years Used Date Smoking Tobacco: Former Smokeless Tobacco: Never Tobacco Cessation:Counseling Given: Yes Comments:quit 2013 Alcohol Use Standard Drinks/Week Comments No 0 (1 standard drink = 0.6 oz pure alcohol) no longer drinking since 03/2017 Social Connections Answer Date Recorded Social Connections and Isolation 0 11/04/2018 Financial Resource Strain Answer Date R ecorded Financial Resource Strain 0 2018 Stress Answer Date Recorded Stress 0 11/04/2018 Physical Activity Answer Date Recorded Physical Activity 0 11/04/2018 Food Insecurity Answer Date Recorded Food 0 11/04/2018 Transportation Needs Answer Date Record ed Transportation 0 11/04/2018 Housing Stability Answer Date Recorded Housing 0 11/04/2018 Safety and Environment Answer Date Eric rded Safety 0 11/04/2018 Utilities Answer Date Recorded Utilities 0 11/04/2018 Employment Answer Date Recorded Employment 0 11/04/2018 Sex and Gender Information Value Date Recorded Sex Assigned at Male 02/28/2017 12:31 PM PST Legal Sex Male 7:45 AM PDT Gender Identity Male 02/28/2017 12:31 PM PST Sexual Orientation Straight 02/28/2017 12 :31 PM PST Last Filed Vital Signs Vital Sign Reading Time Taken Comments Blood Pressure 140/82 01/18/2018 8:41 AM EST Pulse 82 01/18/2018 8:41 AM EST Temperature 36.6 ??C (97.9 ??F) 01/18/2018 8:41 AM ES T Respiratory Rate 20 01/18/2018 8:41 AM EST Oxygen Saturation - - Inhaled Oxygen Concentration - - Weight 96.2 kg (212 lb) 01/18/2018 8:41 AM EST Height 167.6 cm (5' 6 ) 01/18/2018 8:41 AM EST Body Mass Index 34.22 01/18/2018 8:41 AM EST Plan of Treatment Not on file Care Teams Hse Manager Relationship Specialty Start Date End Date Frederick Marx NP [address] [place] [id number] PCP - General FORESTRY BIOLOGY SPECIALIST Nurse Practitioner 05/15/18
== END 2024-06-12 12:33 | disposition home or self-care (01) ==
LOC: HO.HMCH 11:33
PROVIDERS: PCP Physician Assistant; Visit Provider Physician Assistant
DX: J41.8 Mixed simple and mucopurulent chronic bronchitis (principal); I48.11 Longstanding persistent atrial fibrillation; E66.812 Obesity, class 2; Z68.38 Body mass index [BMI] 38.0-38.9, adult; I10 Essential (primary) hypertension

== ENCOUNTER → 2024-06-12 11:32 | Outpatient (BNVA) | payer OTHER, SELFPAY | PROVIDERS: PCP Physician Assistant; Visit Provider Physician Assistant | DX: I10 Essential (primary) hypertension (principal); J41.8 Mixed simple and mucopurulent chronic bronchitis; I48.11 Longstanding persistent atrial fibrillation; E66.812 Obesity, class 2; Z68.38 Body mass index [BMI] 38.0-38.9, adult; Z71.3 Dietary counseling and surveillance | CPT/HCPCS: 96127; 99212 ==

== ENCOUNTER 2024-09-03 08:28 | Outpatient (REF) | payer OTHER, SELFPAY ==
--- OUTSIDE RECORDS SUMMARY | 2024-09-03 08:42 | XMS_ITS | Clinical Summary ---
Demographics Address [birth year][address] [address] Home Phone Preferred Language Kazakh Marital Status Single Lutheran Affiliation Unknown Race White Ethnic Group Not or Lati no Author Organization [facility] Address [address] [place] [address] Care Team Providers Care Ekg Manager Name Role Phone Frederick Marx NP Primary Care Provider Source Comments PLEASE NOTE, if this patient [...] (FLONASE) 50 mcg/actuation nasal spray Place 1 Kress in both nostrils once daily 16 g [...] evaluation at the next visit with his computer equipment repairer . If Provided w/ clearance and can [...] Anticoagulation for Persistent A fib Carotid duplex(12/02/16, [facility]): vascular tortuosity w/o evidence of hemodynamically significant stenosis. Thyroid nodule 09/11/2015 Overview (09/11/2015): 16mm nodule in Lt thyroid gland on CT chest(12/05/14). Thyroid USG recommended Essential hypertension 07/28/2015 GERD (gastroesophageal reflux disease) 6 Chronic atrial fibrillation ([facility]) 07/28/2015 Overview (01/12/2017): Dx in 2014 at [place] after symptoms of TIA. On Xarelto, Metoprolol. Was following Cardiology at [place]- Dr. Corley. Had ECHO, Bubble study at [facility] cardiology. >> Following [place] cardiology, on 01/15/16, Cont current cardiac regimen of metoprolol, amlodipine, losartan, and Xarelto maintenance therapy. follow up in 6 months with an echocardiogram performed in [facility] prior the visit. 12/13/16 - continue medication - repeat carotid u/s in one year. COPD (chronic obstructive pulmonary disease) ([facility]) 07/28/2015 Overview (09/11/2015): Had PFTs(09/19/13) ? Asthma component+. Alpha 1 AT nl On Spiriva, Albuterol HFA. Former smoker. was seen by Pulmonary- Dr. Festus Josue, He also had Lung mass noted on CT scan. Had endobronchial Bx : no tumor. At [facility] Obesity (BMI 30.0-34.9) 07/28/2015 Former smoker 07/28/2015 Speech abnormality 07/28/2015 Overview (07/28/2015): As per pt he has speech abnormality since childhood and had speech therapy in the past. Says that it gets worse when he is anxious. History of alcohol dependence ([facility]) 08/28/19 14 Immunizations Immunization Administration Dates Next Due Flu, Preservative Free 01/18/2018,02/28/2017 INFLUENZA, SEASONAL, INJECTABLE 02/02/2016 PNEUMOCOCCAL CONJUGATE PCV 13 02/28/2017 PNEUMOCOCCAL POLYSACCHARIDE PPV23 (Pneumovax 23) 01/23/2014 TDAP 11/25/2013 Social History Tobacco Use [...] 82 01/18/2018 8:41 AM EST Temperature 36.6 C (97.9 F) 01/18/2018 8:41 AM EST Respiratory Rate 20 01/18/2018 8:41 AM EST Oxygen Saturation - - Inhaled Oxygen Concentration - - Weight 96.2 kg (212 lb) 01/18/2018 8:41 AM EST Height 167.6 cm (5' 6 ) 01/18/2018 8:41 AM EST Body Mass Index 34.22 01/18/2018 8:41 AM EST Plan of Treatment Not on file Care Teams Ekg Manager Relationship Specialty Start Date End Date Frederick Marx NP [address] [place] [id number] PCP - General LIGHT ARMORED VEHICLE OFFICER Nurse Practitioner 05/15/18
[2024-09-03 09:17] LABS: Estimated Average Glucose 131 mg/dL; Hemoglobin A1c % 6.2 % (<6.0)
[2024-09-03 09:33] LABS: Alanine Aminotransferase 36 U/L (0-40); Albumin Level 4.4 g/dL (3.5-5.0); Alkaline Phosphatase 87 U/L (39-117); Anion Gap 14 (12-20); Aspartate Amino Transferase 19 U/L (5-37); Bilirubin Total 0.4 mg/dL (0.0-1.0); Blood Urea Nitrogen 14 mg/dL (9-16); Calcium 9.1 mg/dL (8.4-10.2); Carbon Dioxide 36 mmol/L (22-29); Chloride 98 mmol/L (96-108); Cholesterol 122 mg/dL (<200); Estimated Glomerular Filt Rate > 60; Glucose Fasting 147 mg/dL (60-99); HDL Cholesterol 36 mg/dL (>40); LDL Cholesterol Calculated 72 mg/dL (<100); Potassium 3.5 mmol/L (3.3-5.1); Sodium 144 mmol/L (135-145); Total Protein 7.3 g/dL (6.5-8.0); Triglycerides 72 mg/dL (<150)
[2024-09-03 09:51] LABS: Uric Acid 7.3 mg/dL (3.4-7.0)
[2024-09-03 09:52] LABS: Prostate Specific Antigen Scr 1.71 ng/mL (<0.05-4.0)
[2024-09-03 10:15] LABS: Creatinine Urine 115.19 mg/dL
== END 2024-09-03 08:29 | disposition home or self-care (01) ==
LOC: HO.LAB 08:28
PROVIDERS: PCP Physician Assistant; Visit Provider Physician Assistant
DX: Z12.5 Encounter for screening for malignant neoplasm of prostate (principal); Z01.818 Encounter for other preprocedural examination; I10 Essential (primary) hypertension; J41.8 Mixed simple and mucopurulent chronic bronchitis; I48.11 Longstanding persistent atrial fibrillation; R73.09 Other abnormal glucose; M10.9 Gout, unspecified
CPT/HCPCS: 36415; 80053; 80061; 82043; 82570; 83036; 84153; 84550; 99212

== ENCOUNTER 2024-09-03 09:12 | Outpatient (AMB) | payer OTHER, SELFPAY ==
--- NOTE | 2024-09-03 09:15 | A.OFFPC_ITS ---
Vital Signs 09/03/24 09:18 Height 5 ft 6 in Weight 251 lb 2 oz BMI 40.5 BP 140/80 H Blood Pressure Location Lt brachial Position Sitting Pulse 93 Pulse Source Pulse Oximeter Temp 97.3 F Temp Source Temporal Artery Scan Pulse Oximetry (%) 92 Oxygen Delivery Method Nasal Cannula Oxygen Flow Rate 5 Intake Visit Reasons: [facility] 09/24 lt & 10/10 rt cataract Intake Note: Patient is here for a Pre-op for Cataract surgery scheduled with provider name on 09/24 and 10/10/24. Casket Assembler Required: No Accompanied by: Self / Same As Patient Allergies No Known Allergies Allergy (Verified 09/03/24 09:28) Medication List - Last Reconciled 09/03/24 by Niels Gonzalez PA-C albuterol sulfate 90 mcg/actuation 2 puffs PO QID 30 days allopurinol 100 mg PO DAILY 90 days amlodipine 10 mg PO DAILY 90 days apixaban 5 mg PO BID 90 days kqdvuashkis-nprcdtlyd-pyhfcjuf 100-62.5-25 mcg (Trelegy Ellipta) 1 ea inhalation DAILY furosemide 40 mg PO DAILY 90 days losartan 100 mg (2 x 50 mg) PO DAILY 90 days metoprolol succinate ER 100 mg PO DAILY 90 days pantoprazole 20 mg PO DAILY 90 days Tobacco use date assessed: 06/12/24 Dental Screening Dental Screen Date: 06/12/24 HPI [facility] 09/24 lt & 10/10 rt cataract HPI Details Patient is a 58 year old male here today for a preop visit. Patient is due for bilateral cataract removals in September of 2024. Patient has a past medical history significant for HTN, COPD, AFIB, GERD. Patient does not history of Congestive heart failure, CVA or an TX. He continues on anticoagulation therapy for his AFib with Eliquis 5 mg b.i.d. HTN:? Patient's blood pressure at home have been stable 110s to 120 systolic. Blood pressure today in office slightly elevated. He does report may have a element of white coat hypertension.? Denies any headaches, vision issues, chest discomfort or palpitations. ? .. ? AFIB: On Eliquis 5 mg b.i.d. denies any overt signs of bleeding. Continues to follow cardiology and [place]. He reports recently getting cardiac testing and ECHO which showed satisfactory results. ?Currently patient without chest pain or palpitations. .. ? .. ? COPD: Is followed by a mercury washer Dr. Rocha in [facility]. He has been on continuous O2 via nasal cannula and oxygen concentrate at home.? Continues with the use of maintenance inhalers (trelegy) which are helpful to him. He does report at times of physical exertion you does get short of breath and does have to uses rescue inhaler which resolves his shortness of breath Laboratory Tests 02/15/21 09/03/24 11:41 08:45 Hemoglobin A1c % 6.2 6.2 H Laboratory Tests 09/03/24 08:45 Creatinine 0.70 Fasting Glucose 147 H ALT 36 PFSH Surgical History No pertinent past surgical history Family History Father Diabetes Mother Hypertension Brother No problems noted. Sister No problems noted. Social History Housing: House Alcohol intake: current Alcohol intake frequency: a few times a week Patient Tobacco Use Status: Former Tobacco user Tobacco use type: Cigarette e-Cigarette/Vaping Use: Never Used Second Hand Smoke Exposure: No service: No Current occupational status: disabled Cognitive needs: No Hearing needs: No Vision needs: No Questionnaire Thrive Questionnaire Date Thrive assessed: 06/12/24 RICARDO-7 AMB Questionnaire RICARDO-7 Date RICARDO - 7 assessed: 06/12/24 Source: Developed by Drs. Cory Dos Santos, Cami Lehman, Guilherme Emanuel and colleagues, with an educational mariza from [employer]. Review of Systems Const Denies headache(s) Eyes Denies loss of vision ENT Denies vertigo, Denies dizziness, Denies headache(s) and Denies sore throat Card Denies chest pain, Denies leg edema and Denies lightheadedness Resp Denies cough, Denies hemoptysis and Denies wheezing GI Denies abdominal pain, Denies melena, Denies constipation, Denies diarrhea and Denies vomiting Denies dysuria, Denies urinary frequency and Denies urinary urgency Musc Denies arthralgias, Denies joint swelling, Denies numbness and Denies tingling Neuro Denies Abnormal speech present, Denies behavioral changes, Denies vertigo, Denies dizziness, Denies headache(s), Denies loss of vision, Denies memory loss, Denies numbness and Denies tingling Psych Denies anxiety, Denies behavioral changes, Denies depression, Denies memory loss and Denies panic attacks Sandor/Lymph Denies easy bleeding and Denies easy bruising Aller/Immun Denies wheezing Physical exam (Primary Care) Vital Signs: Last Vital Signs Temp 97.3 F 09/03/24 09:18 Pulse 93 09/03/24 09:18 BP 140/80 H 09/03/24 09:18 Pulse Ox 92 09/03/24 09:18 Oxygen Delivery Method Nasal Cannula 09/03/24 09:18 Oxygen Flow Rate 5 09/03/24 09:18 BMI result Body Mass Index 40.5 Tobacco/Smoking Status: Tobacco use Status Tobacco use date assessed 06/12/24 09/03/24 09:16 Patient Tobacco Use Status Former Tobacco user 09/03/24 09:16 Tobacco use type Cigarette 09/03/24 09:16 e-Cigarette/Vaping Use Never Used 09/03/24 09:16 Thrive Assessment: Date of Thrive Assessment Date Thrive assessed 06/12/24 09/03/24 09:16 Const General: healthy appearing, no acute distress, alert and awake Nutritional Appearance: well nourished Orientation/consciousness: oriented to person, oriented to place and oriented to time HENMT Ears: TM's normal bilaterally General nose exam: Normal nasal mucous membranes and turbinates present Eyes Conjunctivae: conjunctivae normal Sclerae: sclerae normal Pupils: Equal, round and reactive pupils present Neck Neck: Yes no lymphadenopathy and Yes no JVD Thyroid: Thyroid normal Carotids: no bruits Resp Effort & Inspection: normal respiratory effort and not tachypneic Auscultation: no crackles, no rales, no rhonchi and no wheezes Cardio Rate: regular rate Rhythm: regular rhythm Heart sounds: no murmurs and normal S1 and S2 GI Palpation (GI): Soft to palpation, nontender, no hepatomegaly and no spl enomegaly Auscultation: normal bowel sounds Skin General skin exam: no rashes or lesions noted and dry skin Neuro General: oriented to person, oriented to place and oriented to time Cranial nerves: Yes Equal, round and reactive pupils present Speech: No Abnormal speech present Gait exam (Neuro): Normal gait present Motor exam (neuro): no tremor noted Extrem Right upper extremity: full ROM Left upper extremity: full ROM Right lower extremity: full ROM; no edema Left lower extremity: full ROM; no edema Psych Mental Status: mental status grossly normal Speech and movement: Normal speech and movement present Affect: normal affect Attitude: cooperative Thought process: Normal thought process present Coding Level of Care Code Est Pt Level 4 (13536) Diagnoses Pre-op evaluation Z01.818 Essential hypertension I10 Hypertension type: essential hypertension Mixed simple and mucopurulent chronic bronchitis J41.8 COPD type: chronic bronchitis Chronic bronchitis type: mixed simple and mucopurulent Longstanding persistent atrial fibrillation I48.11 Atrial fibrillation type: longstanding persistent Assessment & Plan Assessment & Plan (1) Pre-op evaluation: Code(s): Z01.818 - Encounter for other preprocedural examination Category: Medical Plan: Patient's recent labs and vitals are stable.. Patient has a low CV risk for cataract removal surgery. Patient is medically clear for needed cataract removal surgery. (2) HTN (hypertension): Code(s): I10 - Essential (primary) hypertension Category: Medical Qualifiers: Hypertension type: essential hypertension Qualified Code(s): I10 - Essential (primary) hypertension Plan: Patient's blood pressure slightly elevated today in office, he is adherent to all of his medications. Will continue his current dose of antihypertensive medication with goal blood pressure to remain below 140/90 (3) COPD (chronic obstructive pulmonary disease): Code(s): J44.9 - Chronic obstructive pulmonary disease, unspecified Category: Medical Qualifiers: COPD type: chronic bronchitis Chronic bronchitis type: mixed simple and mucopurulent Qualified Code(s): J41.8 - Mixed simple and mucopurulent chronic bronchitis Plan: Patient continues to follow pulmonology in [place]. He has been recently started on supplemental O2 at home continuously. You continues with the use of Trelegy for his maintenance inhaler and p.r.n. use of his albuterol inhaler. (4) Afib: Code(s): I48.91 - Unspecified atrial fibrillation Category: Medical Qualifiers: Atrial fibrillation type: longstanding persistent Qualified Code(s): I48.11 - Longstanding persistent atrial fibrillation Plan: Patient is anticoagulated with Eliquis without any overt signs of bleeding. He is rate control with metoprolol with good effect.
[2024-09-03 09:18] VITALS: BP 140/80; PULSE 93; TEMP 36.3; O2SAT 92; BMI 40.5
== END 2024-09-03 09:43 | disposition home or self-care (01) ==
PROVIDERS: PCP Physician Assistant; Visit Provider Physician Assistant
DX: Z01.818 Encounter for other preprocedural examination (principal); I10 Essential (primary) hypertension; J41.8 Mixed simple and mucopurulent chronic bronchitis; I48.11 Longstanding persistent atrial fibrillation

== ENCOUNTER 2025-01-07 11:00 | Outpatient (AMB) | payer OTHER, SELFPAY ==
[2025-01-07 11:10] VITALS: BP 110/70; PULSE 86; TEMP 36.3; O2SAT 97; BMI 39.9
--- NOTE | 2025-01-07 11:10 | A.OFFPC_ITS ---
Vital Signs 01/07/25 11:10 Height 5 ft 6 in Weight 247 lb 2 oz BMI 39.9 BP 110/70 Blood Pressure Location Lt brachial Position Sitting Pulse 86 Pulse Source Pulse Oximeter Temp 97.3 F Temp Source Temporal Artery Scan Pulse Oximetry (%) 97 Oxygen Delivery Method Nasal Cannula Intake Visit Reasons: Preop left eye cataract Intake Note: Patient is here for a Pre-op for Cataract scheduled with DR Loo on 01/22/25, 02/24/25. Flower Grader Required: No Relocation Commissioner: Not Required per policy Accompanied by: Self / Same As Patient Allergies No Known Allergies Allergy (Verified 01/07/25 11:22) Medication List - Last Reconciled 01/07/25 by Niels Gonzalez PA-C albuterol sulfate 90 mcg/actuation 2 puffs PO QID 30 days allopurinol 100 mg PO DAILY 90 days amlodipine 10 mg PO DAILY 90 days apixaban 5 mg PO BID 90 days [Blood pressure monitor As directed] nmufdgjuncm-zgisiwter-yuppbivl 100-62.5-25 mcg (Trelegy Ellipta) 1 ea inhalation DAILY furosemide 40 mg PO DAILY 90 days losartan 100 mg (2 x 50 mg) PO DAILY metoprolol succinate ER 100 mg PO DAILY 90 days pantoprazole 20 mg PO DAILY 90 days Tobacco use date assessed: 01/07/25 Dental Screening Dental Screen Date: 06/12/24 HPI Preop left eye cataract HPI Details Patient is a 59 year old male here today for a preop visit. Patient is due for bilateral cataract removals in January 2025 Patient has a past medical history significant for HTN, COPD, AFIB, GERD. Patient does not history of Congestive heart failure, CVA or an RI. He continues on anticoagulation therapy for his AFib with Eliquis 5 mg b.i.d. HTN:? Patient's blood pressure at home have been stable 110s to 120 systolic. Blood pressure today in office slightly elevated. He does report may have a element of white coat hypertension.? Denies any headaches, vision issues, chest discomfort or palpitations. ? .. ? AFIB: On Eliquis 5 mg b.i.d. denies any overt signs of bleeding. Continues to follow cardiology and [place]. He reports recently getting cardiac testing and ECHO which showed satisfactory results. ?Currently patient without chest pain or palpitations. if cataract removal under local anesthesia does not need to hold his Eliquis for cataract removal procedure .. ? .. ? COPD: Is followed by a machine puller over Dr. Rocha in [facility]. He has been on continuous O2 via nasal cannula and oxygen concentrate at home.? Continues with the use of maintenance inhalers (trelegy) which are helpful to him. He does report at times of physical exertion you does get short of breath and does have to uses rescue inhaler which resolves his shortness of breath [facility] Surgical History No pertinent past surgical history Family History Father Diabetes Mother Hypertension Brother No problems noted. Sister No problems noted. Social History Housing: House Alcohol intake: current Alcohol intake frequency: holidays/special occasions only Patient Tobacco Use Status: Former Tobacco user Tobacco use type: Cigarette e-Cigarette/Vaping Use: Never Used Second Hand Smoke Exposure: Yes service: No Current occupational status: disabled Cognitive needs: No Hearing needs: No Vision needs: No Questionnaire Thrive Questionnaire Date Thrive assessed: 06/12/24 RICARDO-7 AMB Questionnaire RICARDO-7 Date RICARDO - 7 assessed: 06/12/24 Source: Developed by Drs. Cory Dos Santos, Cami Lehman, Guilherme Emanuel and colleagues, with an educational mariza from [employer]. Review of Systems Const Denies headache(s) Eyes Denies loss of vision ENT Denies vertigo, Denies dizziness, Denies headache(s) and Denies sore throat Card Denies chest pain, Denies leg edema and Denies lightheadedness Resp Denies cough, Denies hemoptysis and Denies wheezing GI Denies abdominal pain, Denies melena, Denies constipation, Denies diarrhea and Denies vomiting Denies dysuria, Denies urinary frequency and Denies urinary urgency Musc Denies arthralgias, Denies joint swelling, Denies numbness and Denies tingling Neuro Denies Abnormal speech present, Denies behavioral changes, Denies vertigo, Denies dizziness, Denies headache(s), Denies loss of vision, Denies memory loss, Denies numbness and Denies tingling Psych Denies anxiety, Denies behavioral changes, Denies depression, Denies memory loss and Denies panic attacks Sandor/Lymph Denies easy bleeding and Denies easy bruising Aller/Immun Denies wheezing Physical exam (Primary Care) Vital Signs: Last Vital Signs Temp 97.3 F 01/07/25 11:10 Pulse 86 01/07/25 11:10 BP 110/70 01/07/25 11:10 Pulse Ox 97 01/07/25 11:10 Oxygen Delivery Method Nasal Cannula 01/07/25 11:10 BMI result Body Mass Index 39.9 Tobacco/Smoking Status: Tobacco use Status Tobacco use date assessed 01/07/25 01/07/25 11:17 Patient Tobacco Use Status Former Tobacco user 01/07/25 11:17 Tobacco use type Cigarette 01/07/25 11:17 e-Cigarette/Vaping Use Never Used 01/07/25 11:17 Thrive Assessment: Date of Thrive Assessment Date Thrive assessed 06/12/24 01/07/25 11:17 Const General: healthy appearing, no acute distress, alert and awake Nutritional Appearance: well nourished Orientation/consciousness: oriented to person, oriented to place and oriented to time HENMT Ears: TM's normal bilaterally General nose exam: Normal nasal mucous membranes and turbinates present Eyes Conjunctivae: conjunctivae normal Sclerae: sclerae normal Pupils: Equal, round and reactive pupils present Neck Neck: Yes no lymphadenopathy and Yes no JVD Thyroid: Thyroid normal Carotids: no bruits Resp Effort & Inspection: normal respiratory effort and not tachypneic Auscultation: no crackles, no rales, no rhonchi and no wheezes Cardio Rate: regular rate Rhythm: regular rhythm Heart sounds: no murmurs and normal S1 and S2 GI Palpation (GI): Soft to palpation, nontender, no hepatomegaly and no splenomegaly Auscultation: normal bowel sounds Skin General skin exam: no rashes or lesions noted and dry skin Neuro General: oriented to person, oriented to place and oriented to time Cranial nerves: Yes Equal, round and reactive pupils present Speech: No Abnormal speech present Gait exam (Neuro): Normal gait present Motor exam (neuro): no tremor noted Extrem Right upper extremity: full ROM Left upper extremity: full ROM Right lower extremity: full ROM; no edema Left lower extremity: full ROM; no edema Psych Mental Status: mental status grossly normal Speech and movement: Normal speech and movement present Affect: normal affect Attitude: cooperative Thought process: Normal thought process present Office Procedures Flu Questionnaire Does the patient have a severe egg allergy?: No Does the patient have severe life threatening allergies?: No Does the patient have a fever or illness today?: No Has the patient ever had Guillain-[place] Syndrome?: No Has the patient ever had any past reaction to a flu shot?: No Immunizations Fluarix [id number] (PF) 45 mcg (15 mcg x 3)/0.5 mL IM syringe Performing Provider: Niels Gonzalez PA-C [facility] Administered by: MIALGROS Landis on 01/07/25 11:43 Dose Route Admin Location Dispensed Lot Number Expiration Date NDC Fur Polisher 0.5 mL IM Left Deltoid 0.5 mL [id number] 09/09/24 35925-905-99 [employer] VIS Given Date VIS Provided VIS Publication Date 01/07/25 Single Vaccine 24 Eligibility Eligibility Date Funding Source Not [facility] Eligible 01/07/25 Private Coding Level of Care Code Est Pt Level 4 (95935) Diagnoses Pre-op evaluation Z01.818 Essential hypertension I10 Hypertension type: essential hypertension Mixed simple and mucopurulent chronic bronchitis J41.8 COPD type: chronic bronchitis Chronic bronchitis type: mixed simple and mucopurulent Longstanding persistent atrial fibrillation I48.11 Atrial fibrillation type: longstanding persistent Assessment & Plan Assessment & Plan (1) Pre-op evaluation: Code(s): Z01.818 - Encounter for other preprocedural examination Category: Medical Plan: Patient's recent labs and vitals are stable.. Patient has a low CV risk for cataract removal surgery. No need to hold DOAC ( anticoag) therapy for low risk cataract removal procedure . Patient is medically clear for needed cataract removal surgery. (2) HTN (hypertension): Code(s): I10 - Essential (primary) hypertension Category: Medical Qualifiers: Hypertension type: essential hypertension Qualified Code(s): I10 - Essential (primary) hypertension Plan: Patient's blood pressure acceptable today in office. he is adherent to all of his medications. Will continue his current dose of antihypertensive medication with goal blood pressure to remain below 140/90 (3) COPD (chronic obstructive pulmonary disease): Code(s): J44.9 - Chronic obstructive pulmonary disease, unspecified Category: Medical Qualifiers: COPD type: chronic bronchitis Chronic bronchitis type: mixed simple and mucopurulent Qualified Code(s): J41.8 - Mixed simple and mucopurulent chronic bronchitis Plan: Patient continues to follow pulmonology in [place]. Continues supplemental O2 at home continuously. You continues with the use of Trelegy for his maintenance inhaler and p.r.n. use of his albuterol inhaler. (4) Afib: Code(s): I48.91 - Unspecified atrial fibrillation Category: Medical Qualifiers: Atrial fibrillation type: longstanding persistent Qualified Code(s): I48.11 - Longstanding persistent atrial fibrillation Plan: Patient is anticoagulated with Eliquis without any overt signs of bleeding. He is rate control with metoprolol with good effect. Orders: Orders Hemoglobin A1c 01/07/25 R73.09 - Other abnormal glucose Microalbumin, Random (w Creat) 01/07/25 I10 - Essential (primary) hypertension Comprehensive [place]. Panel Fast 01/07/25 I10 - Essential (primary) hypertension Uric Acid 01/07/25 M10.9 - Gout, unspecified Lipid Panel 01/07/25 I10 - Essential (primary) hypertension Influenza [id number] Immunization 01/07/25 Z23 - Encounter for immunization Complete Blood Count no Diff 01/07/25 I10 - Essential (primary) hypertension
--- OUTSIDE RECORDS SUMMARY | 2025-01-07 14:09 | XMS_ITS | Clinical Summary ---
Demographics Address [address] [place] [address] Home Phone Mobile Phone Preferred Language en Marital Status Unknown Presybeterian Affiliation Unknown Race Unknown Ethnic Group Unknown Author Organization [facility] Facility Address [address] [place] [id number] Care Team Providers Care Ophthalmologist Name Role Phone Niels Gonzalez Primary Care Provider [phone] Allergies No known active allergies Medications losartan-hydroC [...] Colorectal Cancer Screening: Sigmoidoscopy 2014 Pneumococcal Vaccine: 50+ Ye ars (3 of 3 - PCV20 or PCV21) 01/23/2019 02/28/2017, 01/23/2014 Influenza Vaccine (#1) 2024 01/18/2018, 2016 Pneumococcal Vaccine: Peds ( 0 to 5 Years) and At-Risk Patients (6 to 49 Years) Discontinued 02/28/2017, 01/23/2014 Insurance * Guarantor: Elaine Spencer Account Type Relation to Patient Date of Phone Billing Address Personal/Family Self 1965 [address] [place] [address] Medicare [place] * Guarantor: Rajesh Spencerramos Ocampo Account Type Relation to Patient Date of Phone Billing Address Personal/Family Self 1965 03[address] [place] [address] Medicare Medicaid [place] Care Teams Ophthalmologist Relationship Specialty Start Date End Date Niels Gonzalez PA [address] [place] [address], [address] [place] [address] PCP - General Physician Meteorology Professor 08/22/22
--- OUTSIDE RECORDS SUMMARY | 2025-01-07 14:09 | XMS_ITS | Clinical Summary ---
Demographics Address [birth year][address] [address] Home Phone Preferred Language Venezuelan Marital Status Single Moravian Affiliation Unknown Race White Ethnic Group Not or Lati no Author Organization [facility] Address [address] [place] [address] Care Team Providers Care Strategic Consultant Name Role Phone Frederick Marx NP Primary Care Provider [phone] Source Comments PLEASE NOTE, if this patient [...] Chronic obstructive pulmonary disease, unspecified COPD type Take 10 mL by mouth every 4 (four) hours as needed for cough 240 mL 1 8 Active budesonide-formot yaneli (SYMBICORT) 160-4.5 mcg/actuation inhaler Inhale 2 Puffs into the lungs 2 (two) times daily 10.2 Inhaler 3 8 Active albuterol sulfate 90 mcg/actuation inhalerIndication s:Chronic obstructive pulmonary disease, unspecified COPD type Inhale 2 Puffs into the lungs every 6 (six) hours as needed for shortness of breath or wheezing 1 Inhaler 5 8 Active fluticasone (FLONASE) 50 mcg/actuation nasal spray Place 1 Mead in both nostrils once daily 16 g [...] tartrate (LOPRESSOR) 50 mg tabletIndications :Chronic atrial fibrillation,Esse ntial hypertension Take 1 Tab by mouth 2 [...] evaluation at 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 If Provided w/ clearance and can [...] Anticoagulation for Persistent A fib Carotid duplex(12/02/16, [facility]): vascular tortuosity w/o evidence of hemodynamically significant stenosis. Thyroid nodule 09/11/2015 Overview (09/11/2015): 16mm nodule in Lt thyroid gland on CT chest(12/05/14). Thyroid [facility] recommended Essential hypertension 07/28/2015 GERD (gastroesophageal reflux disease) 6 Chronic atrial fibrillation 07/28/2015 Overview (01/12/2017): Dx in 2014 at [place] after symptoms of TIA. On Xarelto, Metoprolol. Was following Cardiology at [place]- Dr. Corley. Had ECHO, Bubble study at [facility] cardiology. >> Following [facility] cardiology, on 01/15/16, Cont current cardiac regimen of metoprolol, amlodipine, losartan, and Xarelto maintenance therapy. follow up in 6 months with an echocardiogram performed in [facility] prior the visit. 12/13/16 - continue medication - repeat carotid u/s in one year. COPD (chronic obstructive pulmonary disease) Overview (09/11/2015): Had PFTs(09/19/13) ? Asthma component+. Alpha 1 AT nl On Spiriva, Albuterol HFA. Former smoker. was seen by Pulmonary- Dr. Festus Josue, He also had Lung mass noted on CT scan. Had endobronchial Bx : no tumor. 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 Says that it gets worse when he is anxious. History of alcohol dependence 08/27/2013 Immunizations Immunization Administration Dates Next Due Flu, [...] of Treatment Not on file Care Teams Strategic Consultant Relationship Specialty Start Date End Date Frederick Marx NP [address] [place] [address] PCP - General SAPPHIRE STYLUS GRINDER Nurse Practitioner 05/15/18
== END 2025-01-07 11:44 | disposition home or self-care (01) ==
LOC: HO.HMCH 11:01
PROVIDERS: PCP Physician Assistant; Visit Provider Physician Assistant
DX: Z01.818 Encounter for other preprocedural examination (principal); I10 Essential (primary) hypertension; J41.8 Mixed simple and mucopurulent chronic bronchitis; I48.11 Longstanding persistent atrial fibrillation

== ENCOUNTER → 2025-01-07 11:00 | Outpatient (BNVA) | payer OTHER, SELFPAY | PROVIDERS: PCP Physician Assistant; Visit Provider Physician Assistant | DX: Z01.818 Encounter for other preprocedural examination (principal); I11.0 Hypertensive heart disease with heart failure; I50.9 Heart failure, unspecified; I48.91 Unspecified atrial fibrillation; J41.8 Mixed simple and mucopurulent chronic bronchitis; I48.11 Longstanding persistent atrial fibrillation; Z23 Encounter for immunization; Z99.81 Dependence on supplemental oxygen; Z86.73 Personal history of transient ischemic attack (TIA), and cerebral infarction without residual deficits; Z79.01 Long term (current) use of anticoagulants | CPT/HCPCS: 90471; 90656; 99212 ==